=== PATIENT | female | born 1945 | race Caucasian/White ===

== ENCOUNTER 2019-07-19 02:20 | Inpatient (IN) ==
--- NOTE | 2019-07-19 02:39 | Emergency Department Note ---
Disposition Clinical Impression: Lumbar pain Thoracic back pain Qualifiers: Chronicity: acute Back pain laterality: midline Qualified Code(s): M54.6 - Pain in thoracic spine Disposition: Admitted As Inpatient Condition: Good Referrals: NONE,PCP [Non-Partnered Physician] - Forms: ED Satisfaction Letter, Work/School Release Time of Disposition: 07:00 Back Pain HPI - General Stated Complaint: Middle Back Pain Time Seen by Provider: 07/19/19 02:35 Nursing Notes Reviewed: Yes Vital Signs Reviewed: Yes - History of Present Illness Pt Subjective Complaint: back pain Duration: constant Similar Symptoms Previously: No Location: thoracic spine Quality: aching Radiation: none Worsens with: movement, supine Context: fall (mechanical fall two weeks ago) Associated symptoms: Denies: numbness, weakness, difficulty walking, incontinence of bowel/bladder, abdominal pain Treatments prior to arrival: prescription analgesics, other medications (muscle relaxers), other (ED visits, PCP visit) - Related Data Home Medications Medication Instructions Recorded Confirmed Aspirin [Lo-Dose Aspirin EC] 81 mg PO DAILY 11/20/16 07/19/19 Atenolol [Tenormin] 50 mg PO DAILY 11/20/16 07/19/19 Oxycodone HCl/Acetaminophen 1 each PO QID PRN 07/19/19 07/19/19 [Percocet 10-325 mg Tablet] Tizanidine HCl [Zanaflex] 4 mg PO TID PRN 07/19/19 07/19/19 Previous Rx's Medication Instructions Recorded HYDROcodone/Acet 5/325 mg [[place] 1 tab PO Q4H PRN 5 Days #20 tab 07/17/19 5-325 mg] Methocarbamol [Robaxin] 500 mg PO Q8HR 5 Days #15 tablet 07/17/19 Allergies Allergy/AdvReac Type Severity Reaction Status Date / Time codeine Allergy Unknown Unknown Verified 07/19/19 02:42 Horse/Equine Containing Allergy Unknown Unknown Verified 07/19/19 02:42 Products tetanus toxoid, adsorbed Allergy Unknown Unknown Verified 07/19/19 02:42 All systems ED: reviewed and negative except as stated. Review of Systems: As Per HPI Constitutional: Denies: fever, chills, weakness Eyes: Denies: vision change ENT ED: Denies: throat pain Cardiovascular: Denies: chest pain, palpitations Respiratory: Denies: cough, dyspnea Gastrointestinal: Denies: abdominal pain, nausea, vomiting Genitourinary: Denies: dysuria Musculoskeletal: Reports: as per HPI. Denies: joint swelling Integumentary: Denies: rash Neurological: Denies: headache, weakness, numbness, paresthesias Endocrine: Denies: fatigue Hematological/Lymphatic: Denies: lymphadenopathy Allergic/Immunologic: Denies: facial swelling Past Medical History - Past Medical History Medical history: Reports: hypertension Psychiatric history: Reports: no psych history - Social History Smoking Status: Never smoker Smokeless Tobacco Status: No Alcohol use: Reports: none Drug use: Reports: none Physical Exam - General Limitations: no limitations General appearance: alert, in no apparent distress - Head Head exam: atraumatic, normocephalic - Eye Eye exam: Present: EOMI - ENT ENT exam: normal oropharynx, mucous membranes moist - Neck Neck exam: Present: normal inspection, full ROM - Chest Chest inspection: Present: normal inspection. Absent: symmetric chest wall rise - Respiratory Respiratory exam: Present: normal lung sounds bilaterally. Absent: respiratory distress - Cardiovascular Cardiovascular exam: Present: regular rate, normal rhythm - Abdominal Exam Abdominal exam: Present: soft, Non-Tender - Extremities Exam Extremities exam: Present: normal inspection, full ROM, normal capillary refill - Back Exam Back exam: Present: tenderness (thoracic and lumbar). Absent: full ROM (limited due to pain), CVA tenderness (R), CVA tenderness (L) - Neurological Exam Neurological exam: Present: alert - Psychiatric Psychiatric exam: Present: normal affect, normal mood - Skin Skin exam: Present: warm, dry, intact, normal color. Absent: rash, cyanosis, diaphoresis Course Course Narrative: 73-year-old female presents with mid thoracic and lumbar pain. She describes a mechanical fall approximately 10 days ago. Tripping over some [employer], and falling directly onto her back. She did does mention her head got injured, but she denied any loss of consciousness or neck pain. She states that she had not been evaluated for this fall until the (yesterday). At that time she did unremarkable x-rays and had been treated with analgesics. Patient describes that she agreed to be discharged, although she mentions to me today her pain had not improved in the ED. Apparently patient did follow up with her primary care provider on Sunday. Patient describes additional analgesics earlier today and injections and patient has not had any improvement in her symptoms. Patient tells me her doctors attempting to have a MRI improved. In discussion with patient and her son who is bedside, it appears patient has not had any improvement in her pain after visit to the ED, multiple rounds medications, follow-up with her primary care provider. She has been given prescriptions for Vicodin, Percocet, tizanidine, and Robaxin. She denies any fever, cough, abdominal pain, neck pain, numbness, tingling, weakness, urinary incontinence, or passing out. No fever, no immunosuppressive drugs, no anti- platelet/anticoagulants, no IVDA, no bony point tenderness, no h/o CA, no saddle anesthesia, no bowel/bladder sx, not new onset. On examination she appears very uncomfortable, but is alert and oriented in no acute distress.. She is able to ambulate from the wheelchair to the exam bed. Head, no facial asymmetry, normocephalic, atraumatic. Heart regular rate. Lungs sounds clear. No pedal edema.Bilateral posterior tibial and dorsalis pedis pulses intact. No abdominal tenderness. Extremities and back exam limited due to patient's pain, but she has no CVA tenderness. Diffuse thoracic and lumbar tenderness as well as midline tenderness. Patient has not had any response to narcotic medications. We will order ketamine and plan for CT scan. - Reevaluation(s) Reevaluation #1: Pt had some improvement with ketamine. She had declined CT due to pain. We will attempt to manage her pain, and retry for CT again. Additionally have discussed with attending Dr. Lew who agreed to see patient. We will plan for CAT scan, and likely admission for intractable pain. Time: 04:01 Reevaluation #2: Patient was able to get a CAT scan. She has had some relief with IV ketamine. CAT scan , possible L3 endplate compression fracture, radiologist report ecommendations for MRI. We will page for hospitalist for admission for intractable pain, and MRI evaluation. Time: 06:43 Reevaluation #3: Pt discussed with and accepted by hospitalist Dr. Zuniga Time: 06:59 Vital Signs Temperature 98.2 F 07/19/19 02:32 Pulse Rate 60 07/19/19 02:32 Respiratory Rate 20 07/19/19 02:32 Blood Pressure 184/76 07/19/19 02:32 O2 Sat by Pulse Oximetry 98 07/19/19 02:32 Temperature 98.8 F 07/19/19 07:01 Pulse Rate 67 07/19/19 07:01 Respiratory Rate 20 07/19/19 07:01 Blood Pressure 135/67 07/19/19 07:01 O2 Sat by Pulse Oximetry 98 07/19/19 07:01 Oxygen Delivery Oxygen Delivery Room Air Back Pain/Injury - MDM Narrative Medical decision making narrative: Patient was admitted for intractable back pain, and possible compression fracture and L3 and shown on CT.. She has no history of chronic back pain. She had mechanical fall approximately 10 days ago. As an outpatient and one visit in the emergency department earlier in the week she had no relief with by mouth narcotics, IM pain medications, and muscle relaxers. Pain does appear to be associated with this mechanical fall. She has no chest pain, shortness of nikita ath, abdominal pain. No concerning signs for infectious cause. No cauda equina symptoms. Yesterday patient had no pain improvement after Dilaudid, muscle relaxers, by mouth narcotic medications. She had minimal relief of her pain with IM and po narcotics. Due to her age and vitals I did not feel comfortably aggressively treating her pain with multiple round of narcotics. For pain control today, patient was given doses of IV fentanyl, as well as ketamine. Patient was discussed with attending Dr. Lew had face time patient agreed with workup and disposition. Patient accepted by hospitalist. Lumbar Spine CT 07/19/19 02:43 IMPRESSION: Suspected minimally depressed L3 superior endplate compression fracture. This could be confirmed with MRI. Multilevel thoracolumbar degenerative change. D/ / Manohar Castillo / Manohar Castillo Interpreting Provider: Manohar Castillo Thoracic Spine CT 07/19/19 02:43 IMPRESSION: Suspected minimally depressed L3 superior endplate compression fracture. This could be confirmed with MRI. Multilevel thoracolumbar degenerative change. D/ / Manohar Castillo / Manohar Castillo Interpreting Provider: Manohar Castillo Laboratory Tests 07/19/19 07/19/19 05:14 05:14 WBC 7.5 RBC 4.19 Hgb 12.6 Hct 38.2 MCV 91.2 MCH 30.1 MCHC 33.0 RDW 13.7 Plt Count 160 MPV 10.3 Immature Gran % 0.5 Seg Neutrophils % 69.2 Lymphocytes % 17.2 Monocytes % 8.5 Eosinophils % 4.2 Basophils % 0.4 Neutrophils # 5.2 Lymphocytes # 1.3 Monocytes # 0.6 Eosinophils # 0.3 Basophils # 0.0 Sodium 137 Potassium 4.2 Chloride 103 Carbon Dioxide 25 BUN 13 Creatinine 0.79 Est GFR ( Amer) > 60 Est GFR (Non-Af Amer) > 60 BUN/Creatinine Ratio 16 Glucose 99 Calculated Osmolality 284 Calcium 9.[address] 07/19/19 02:43 IMPRESSION: Suspected minimally depressed L3 superior endplate compression fracture. This could be confirmed with MRI. Multilevel thoracolumbar degenerative change. D/ / Manohar Castillo / Manohar Castillo Interpreting Provider: Manohar Castillo Thoracic Spine CT 07/19/19 02:43 IMPRESSION: Suspected minimally depressed L3 superior endplate compression fracture. This could be confirmed with MRI. Multilevel thoracolumbar degenerative change. D/ / Manohar Castillo / Manohar Castillo Interpreting Provider: Manohar Castillo - Lab Data Lab results reviewed: Yes I reviewed the patient's lab results. Result diagrams: 07/19/19 05:14 07/19/19 05:14 Lab Results 07/19/19 07/19/19 Range/Units 05:14 05:14 WBC 7.5 (4.3-11.1) K/mcL RBC 4.19 (3.82-4.97) M/mcL Hgb 12.6 (11.5-15.4) g/dL Hct 38.2 (35.3-44.9) % MCV 91.2 (83.0-100.0) fL MCH 30.1 (28.0-33.3) pg MCHC 33.0 (31.6-35.5) g/dL RDW 13.7 (11.5-14.5) % Plt Count 160 (140-400) K/mcL MPV 10.3 (9.4-12.4) fL Immature Gran % 0.5 (0-4) % Seg Neutrophils % 69.2 % Lymphocytes % 17.2 % Monocytes % 8.5 % Eosinophils % 4.2 % Basophils % 0.4 % Neutrophils # 5.2 (1.6-8.9) K/mcL Lymphocytes # 1.3 (0.6-4.6) K/mcL Monocytes # 0.6 (0.0-1.3) K/mcL Eosinophils # 0.3 (0.0-0.6) K/mcL Basophils # 0.0 (0.0-0.2) K/mcL Sodium 137 (136-145) mEq/L Potassium 4.2 (3.5-5.1) mEq/L Chloride 103 (98-107) mEq/L Carbon Dioxide 25 (23-29) mEq/L BUN 13 (8-23) mg/dL Creatinine 0.79 (0.60-1.20) mg/dL Est GFR ( Amer) > 60 (> 60) Est GFR (Non-Af Amer) > 60 (> 60) BUN/Creatinine Ratio 16 (6-26) Glucose 99 (70-105) mg/dL Calculated Osmolality 284 (280-300) Calcium 9.3 (8.6-10.3) mg/dL - Radiology Data Radiology results reviewed: Yes I reviewed the patient's radiology results.
[2019-07-19] MEDS ORDERED: KETAMINE IVPB ONE ×2 (02:46→03:59)
[2019-07-19] MEDS ORDERED: SODIUM CHLORIDE 0.9% IVPB ONE ×2 (02:46→03:59)
[2019-07-19] MEDS ORDERED: *HR* FentaNYL (PF) 100 MCG/2 ML VIAL IVP ONE ×2 (03:58→06:46)
[2019-07-19 05:34] LABS: Basophils % 0.4 %; Eosinophils # 0.3 K/mcL (0.0-0.6); Eosinophils % 4.2 %; Hematocrit 38.2 % (35.3-44.9); Hemoglobin 12.6 g/dL (11.5-15.4); Immature Granulocytes % 0.5 % (0-4); Lymphocytes # 1.3 K/mcL (0.6-4.6); Lymphocytes % 17.2 %; Mean Corpuscular Hemoglobin 30.1 pg (28.0-33.3); Mean Corpuscular Volume 91.2 fL (83.0-100.0); Mean Platelet Volume 10.3 fL (9.4-12.4); Monocytes # 0.6 K/mcL (0.0-1.3); Monocytes % 8.5 %; Neutrophils # 5.2 K/mcL (1.6-8.9); Platelet Count 160 K/mcL (140-400); Red Blood Count 4.19 M/mcL (3.82-4.97); Red Cell Distribution Width 13.7 % (11.5-14.5); Segmented Neutrophils % 69.2 %; White Blood Count 7.5 K/mcL (4.3-11.1)
[2019-07-19 05:53] LABS: BUN/Creatinine Ratio 16 (6-26); Blood Urea Nitrogen 13 mg/dL (8-23); Calcium 9.3 mg/dL (8.6-10.3); Carbon Dioxide 25 mEq/L (23-29); Chloride 103 mEq/L (98-107); Glucose 99 mg/dL (70-105); Osmolality,Calculated 284 (280-300); Potassium 4.2 mEq/L (3.5-5.1); Sodium 137 mEq/L (136-145); eGFR For African Americans > 60 (> 60); eGFR For Non-African Americans > 60 (> 60)
--- NOTE | 2019-07-19 07:30 | Emergency Department Note ---
Disposition Clinical Impression: Lumbar pain Thoracic back pain Qualifiers: Chronicity: acute Back pain laterality: midline Qualified Code(s): M54.6 - Pain in thoracic spine Disposition: Admitted As Inpatient Condition: Good Referrals: NONE,PCP [Non-Partnered Physician] - Forms: ED Satisfaction Letter, Work/School Release Time of Disposition: 07:00 General Adult HPI - General Chief complaint: ED Back Pain/Injury Stated complaint: Middle Back Pain Time Seen by Provider: 07/19/19 02:35 Source: patient, EMS Limitations: no limitations Nursing Notes Reviewed: Yes Vital Signs Reviewed: Yes - History of Present Illness Pain Scale: 8 - Related Data Home Medications Medication Instructions Recorded Confirmed Aspirin [Lo-Dose Aspirin EC] 81 mg PO DAILY 11/20/16 07/19/19 Atenolol [Tenormin] 50 mg PO DAILY 11/20/16 07/19/19 Oxycodone HCl/Acetaminophen 1 each PO QID PRN 07/19/19 07/19/19 [Percocet 10-325 mg Tablet] Tizanidine HCl [Zanaflex] 4 mg PO TID PRN 07/19/19 07/19/19 Previous Rx's Medication Instructions Recorded HYDROcodone/Acet 5/325 mg [[place] 1 tab PO Q4H PRN 5 Days #20 tab 07/17/19 5-325 mg] Methocarbamol [Robaxin] 500 mg PO Q8HR 5 Days #15 tablet 07/17/19 Allergies Allergy/AdvReac Type Severity Reaction Status Date / Time codeine Allergy Unknown Unknown Verified 07/19/19 02:42 Horse/Equine Containing Allergy Unknown Unknown Verified 07/19/19 02:42 Products tetanus toxoid, adsorbed Allergy Unknown Unknown Verified 07/19/19 02:42 Constitutional: Denies: fever, chills, weakness Eyes: Denies: vision change ENT ED: Denies: throat pain Cardiovascular: Denies: chest pain, palpitations Respiratory: Denies: cough, dyspnea Gastrointestinal: Denies: abdominal pain, nausea, vomiting Genitourinary: Denies: dysuria Musculoskeletal: Reports: as per HPI. Denies: joint swelling Integumentary: Denies: rash Neurological: Denies: headache, weakness, numbness, paresthesias Endocrine: Denies: fatigue Hematological/Lymphatic: Denies: lymphadenopathy Allergic/Immunologic: Denies: facial swelling Past Medical History - Past Medical History Medical history: Reports: arthritis, hypertension Psychiatric history: Reports: no psych history - Social History Smoking Status: Never smoker Smokeless Tobacco Status: No Alcohol use: Reports: none Drug use: Reports: none Physical Exam - General Limitations: no limitations General appearance: alert, in no apparent distress Course Vital Signs Temperature 98.2 F 07/19/19 02:32 Pulse Rate 60 07/19/19 02:32 Respiratory Rate 20 07/19/19 02:32 Blood Pressure 184/76 07/19/19 02:32 O2 Sat by Pulse Oximetry 98 07/19/19 02:32 Temperature 98.8 F 07/19/19 07:01 Pulse Rate 67 07/19/19 07:01 Respiratory Rate 20 07/19/19 07:01 Blood Pressure 135/67 07/19/19 07:01 O2 Sat by Pulse Oximetry 98 07/19/19 07:01 Oxygen Delivery Oxygen Delivery Room Air Medical Decision Making - Lab Data Lab results reviewed: Yes I reviewed the patient's lab results. Result diagrams: 07/19/19 05:14 07/19/19 05:14 Lab Results 07/19/19 07/19/19 Range/Units 05:14 05:14 WBC 7.5 (4.3-11.1) K/mcL RBC 4.19 (3.82-4.97) M/mcL Hgb 12.6 (11.5-15.4) g/dL Hct 38.2 (35.3-44.9) % MCV 91.2 (83.0-100.0) fL MCH 30.1 (28.0-33.3) pg MCHC 33.0 (31.6-35.5) g/dL RDW 13.7 (11.5-14.5) % Plt Count 160 (140-400) K/mcL MPV 10.3 (9.4-12.4) fL Immature Gran % 0.5 (0-4) % Seg Neutrophils % 69.2 % Lymphocytes % 17.2 % Monocytes % 8.5 % Eosinophils % 4.2 % Basophils % 0.4 % Neutrophils # 5.2 (1.6-8.9) K/mcL Lymphocytes # 1.3 (0.6-4.6) K/mcL Monocytes # 0.6 (0.0-1.3) K/mcL Eosinophils # 0.3 (0.0-0.6) K/mcL Basophils # 0.0 (0.0-0.2) K/mcL Sodium 137 (136-145) mEq/L Potassium 4.2 (3.5-5.1) mEq/L Chloride 103 (98-107) mEq/L Carbon Dioxide 25 (23-29) mEq/L BUN 13 (8-23) mg/dL Creatinine 0.79 (0.60-1.20) mg/dL Est GFR ( Amer) > 60 (> 60) Est GFR (Non-Af Amer) > 60 (> 60) BUN/Creatinine Ratio 16 (6-26) Glucose 99 (70-105) mg/dL Calculated Osmolality 284 (280-300) Calcium 9.3 (8.6-10.3) mg/dL - Radiology Data Radiology results reviewed: Yes I reviewed the patient's radiology results. Lumbar Spine CT 07/19/19 02:43 IMPRESSION: Suspected minimally depressed L3 superior endplate compression fracture. This could be confirmed with MRI. Multilevel thoracolumbar degenerative change. D/ / Manohar Castillo / Manohar Castillo Interpreting Provider: Manohar Castillo Thoracic Spine CT 07/19/19 02:43 IMPRESSION: Suspected minimally depressed L3 superior endplate compression fracture. This could be confirmed with MRI. Multilevel thoracolumbar degenerative change. D/ / Manohar Castillo / Manohar Castillo Interpreting Provider: Manohar Castillo Attestation Statement - Attestation Attestation: I, Pedro Lew MD, personally evaluated this patient and discussed their management with the midlevel provicer, PAC/MANAGER [employer]ILIZATION. I reviewed the midlevel provider's note and agree with the documented findings, medical decision making, and plan of care. 73-year-old female presents to the emergency department with a complaint of back pain. Patient states that she had a fall about 12 days ago. She has had pain in her mid and lower back since. No radiation down the legs. No numbness tingling or weakness. No abdominal pain. She was seen here in the emergency department a few days ago. She followed up with her primary care provider yesterday. She returns tonight complaining of persistent pain and states the medications they have given her have not helped. She did have x-rays of her back a few days ago. On examination patient is a well-developed well-nourished well-appearing elderly female in no acute distress. She is alert and oriented 3. There is no cyanosis or diaphoresis. Breath sounds are clear and equal bilaterally. Heart regular rate and rhythm with a 3/6 systolic murmur. Abdomen is soft and nontender with normal bowel sounds. There is tenderness palpation from the mid thoracic down through the lumbar spine area. Labs reviewed and unremarkable. CT of the lumbar spine showed a possible L3 superior endplate compression fracture and MRI was recommended. CT of the thoracic spine showed multilevel degenerative changes. Due to the patient's intractable pain and abnormal CT findings the hospitalist, Dr. Zuniga, was consulted and accepted admission of the patient for further eval uation and management.
[2019-07-19] MEDS ORDERED: Ibuprofen 400 MG TABLET PO PRN (08:11)
[2019-07-19] MEDS ORDERED: Ondansetron 4 MG/2 ML VIAL IVP PRN (08:11)
[2019-07-19] MEDS ORDERED: Naloxone 0.4 MG/ML INJ IVP PRN (08:11)
--- NOTE | 2019-07-19 08:12 | Internal Med History&Physical ---
Date of Encounter: 07/19/19 Time of Encounter: 08:12 Internal Medicine - H&P: HPI Chief complaint: Back pain Admitted From: Emergency Dept History of present illness: Maranda Walters is a 73 F w hx HTN who p/w back pain. Pt had mechanical fall 1.5 weeks ago, tripped in garden, landed on back and head. Denies LOC or bruising. Persistent focal back pain since. Went to PCP last week and has been tried on multiple PO meds without relief so she came to ED earlier this week, again without much relief and so she returned. No fevers, no radiation to legs, no numbness/tingling, no incontinence or urine or stool. Says pain is severe enough sometimes she can't walk or get up. She states that she's been taken numerous narcotics in the last several days and nothing has really helped her feel more comfortable for very long. Otherwise she only takes atenolol daily for HTN and has no other significant medical comorbidities. In the ED, pt vitals unremarkable. Very uncomfortable and unable to tolerate CT. Given doses of fentanyl and ketamine and able to get CT which reads possible endplate compression fracture of L3 for which MRI could better delineate. Admitted for intractable back pain and for MRI. Past medical, surgical, social, and family histories reviewed and updated as below. Past Med Surg Social Fam HX - Past Medical History Medical history: arthritis, hypertension Psychiatric history: no psych history - Past Surgical History Additional surgical history: carpa tunnel bi-lat. knee replacement bi-lat. gastric bypass - Social History Smoking Status: Never smoker Smokeless Tobacco Status: No Alcohol use: none Drug use: none - Family History Father Living Status: Hx Family Cardiac Disorders: Yes Mother Hx Family Cancer: Yes (Uterine) Brother Hx Family Endocrine Disorder: Yes (Diabetes) Internal Medicine - H&P: Meds Aspirin [Lo-Dose Aspirin EC] 81 mg PO DAILY 11/20/16 [History] Atenolol [Tenormin] 50 mg PO DAILY 11/20/16 [History] HYDROcodone/Acet 5/325 mg [[place] 5-325 mg] 1 tab PO Q4H PRN 5 Days #20 tab 07/17/19 [Rx] Methocarbamol [Robaxin] 500 mg PO Q8HR 5 Days #15 tablet 07/17/19 [Rx] Oxycodone HCl/Acetaminophen [Percocet 10-325 mg Tablet] 1 each PO QID PRN 07/19/19 [History] Tizanidine HCl [Zanaflex] 4 mg PO TID PRN 07/19/19 [History] Allergy/AdvReac Type Severity Reaction Status Date / Time codeine Allergy Unknown Unknown Verified 07/19/19 02:42 Horse/Equine Containing Allergy Unknown Unknown Verified 07/19/19 02:42 Products tetanus toxoid, adsorbed Allergy Unknown Unknown Verified 07/19/19 02:42 All Systems PM: A 10-system review of systems was performed and is negative for pertinent findings except as documented above in the HPI. - Constitutional Vitals: Temp Pulse Resp BP Pulse Ox 98.8 F 67 20 135/67 98 07/19/19 07:01 07/19/19 07:01 07/19/19 07:55 07/19/19 07:55 07/19/19 07:01 Exam: General: good eye contact, very uncomfortable appearing, pleasant elderly female Head: Atraumatic, normocephalic. Face symmetric Eyes: EOMI, sclerae anicteric ENT: Mucous membranes moist. Normal oral mucosa. Trachea midline. Thoracic: No visible chest wall deformities. Normal breath sounds b/l, no wheezing or crackles Cardio: Normal S1 and S2, regular rate and rhythm, no murmurs Abdomen: Soft, nontender, nondistended. Bowel sounds present. No rebound Back: no point tenderness on spine, does have some b/l paraspinal muscle tenderness in lower T spine Extremities: Warm, well perfused. DP pulses 2+ b/l. No clubbing, cyanosis. No edema Skin: Intact. No rashes, bruises, or ulcers Neuro: Awake, fully oriented. Good memory, concentration, attention. Speech fluent. CN II-XII grossly intact. Strength 5/5 in b/l UE and LE. Distal sensation preserved to light touch. Internal Med - H&P Results - Labs CBC & Chem 7: 07/19/19 05:14 07/19/19 05:14 Labs: Short CBC 07/19/19 Range/Units 05:14 WBC 7.5 (4.3-11.1) K/mcL Hgb 12.6 (11.5-15.4) g/dL Hct 38.2 (35.3-44.9) % Plt Count 160 (140-400) K/mcL Neutrophils # 5.2 (1.6-8.9) K/mcL BMP 07/19/19 05:14 Sodium 137 Potassium 4.2 Chloride 103 Carbon Dioxide 25 BUN 13 Creatinine 0.79 Glucose 99 Calcium 9.3 - Impressions ITS Impressions Lumbar Spine CT 07/19/19 02:43 IMPRESSION: Suspected minimally depressed L3 superior endplate compression fracture. This could be confirmed with MRI. Multilevel thoracolumbar degenerative change. D/ : / 07/19/2019 08:06:30 Manohar Castillo / karen Interpreting Provider: Manohar Castillo Thoracic Spine CT 07/19/19 02:43 IMPRESSION: Suspected minimally depressed L3 superior endplate compression fracture. This could be confirmed with MRI. Multilevel thoracolumbar degenerative change. D/ /19/2019 08:06:30 Manohar jones Interpreting Provider: Manohar Castillo - Summary of Assessment and Plan Summary of Assessment and Plan: Maranda Walters is a 73 F w hx HTN who p/w back pain after a fall, CT showing possible L3 compression fx. Back pain: possible abnormality seen on CT - MRI L- and T-spine - tylenol, toradol 30 q6h prn, perc 10s q4h prn pain - fentanyl 50 iv q4h prn breakthrough - Spine Dr Fernandes consulted - PT/OT consults HTN: uncontrolled likely 2/2 pain, home atenolol Obesity: BMI 34 PPx: lovenox Tele: no Activity: up w assist FEN: regular, no MIVF Lines: PIV Consults: Code: Full Dispo: Obs for back pain, anticipate 1-2 days, will be homegoing
[2019-07-19] MEDS: Aspirin Enteric Coated 81 MG Tablet PO SCH ×2 (10:16→10:19)
[2019-07-19] MEDS: Ketorolac 30 MG/ML VIAL IM PRN ×2 (10:17→16:49)
[2019-07-19] MEDS: *HR* OxyCODONE/APAP 10/325 TABLET PO SCH ×3 (13:08→21:42)
[2019-07-20] MEDS: *HR* OxyCODONE/APAP 10/325 TABLET PO SCH ×6 (01:03→21:15)
[2019-07-20] MEDS: *HR* Enoxaparin 40 MG/0.4 ML SYRINGE SQ SCH (04:38)
--- NOTE | 2019-07-20 08:13 | Internal Med Progress Note ---
<DanaKelVinicio M - Last Filed: 07/20/19 10:07> Hospitalist Progress Note - Encounter Date of Encounter: 07/20/19 Time of Encounter: 08:13 - Subjective Interval History: Pt is a pleasant 73 F. Sitting in chair at bedside, awake, alert, appears comfortable. States that her pain is well controlled and tolerable at this time. Pain worse when lying supine so she prefers to sit. She is able to ambulate without assistance. We discussed plan today including evaluation by surgery. - Exam Vitals: Temp Pulse Resp BP Pulse Ox 98.1 F 65 16 120/77 96 07/20/19 07:54 07/20/19 07:54 07/20/19 07:54 07/20/19 07:54 07/20/19 07:54 Exam: General: appears comfortable, A&Ox3. Head: Atraumatic, normocephalic. Eyes: EOMI, conjunctiva normal. ENT: Mucous membranes moist. Thoracic: CTA bilaterally, no wheezing, rales, ronchi. Cardio: Normal S1 and S2, regular rate and rhythm, no murmurs Abdomen: Soft, nontender, nondistended. BS normoactive throughout. Back: Mild point tenderness at the lower t-spine with paraspinal tenderness. Pain increased with flexion and lying supine. Extremities: Warm, well perfused. DP pulses 2+ b/l. No clubbing, cyanosis. No edema Skin: Intact. No rashes, bruises, or ulcers Neuro: CN II-XII grossly intact. Sensation intact. - Assessment and Plan (1) Compression fx, thoracic spine Current Visit: Yes Status: Acute Assessment and Plan: Pt is a 73 F with acute thoracic and lumbar spine pain secondary to fall. Evaluation and MRI revealed two acute fractures with edema at T11 and T12. Questionable fracture at T10. Currently comfortable. Pain managed. Dr. Fernandes consulted. Appreciate assistance. - Ibuprofen, toradol Q6H PRN for pain. - Percocet 10/325 Q4H for pain. - Zofran for nausea. - Spine Dr Fernandes consulted - PT/OT evaluation. (2) HTN (hypertension) Current Visit: Yes Status: Acute Assessment and Plan: HTN uncontrolled at admission secondary to pain. BP now well controlled with home atenolol. 120/77. - Continue home atenolol. DVT Prophylaxis: SQ lovenox - Time Spent with Patient Total time spent is greater than 50% in coordination of care (as documented) at patient's floor/unit and/or counseling patient: Plan of Care Discussed with: patient Internal Medicine: Result - Labs CBC & Chem 7: 07/19/19 05:14 07/19/19 05:14 - Impressions Impressions Lumbar Spine CT 07/19/19 02:43 IMPRESSION: Suspected minimally depressed L3 superior endplate compression fracture. This could be confirmed with MRI. Multilevel thoracolumbar degenerative change. D/ : / 07/19/2019 08:06:30 Manohar Castillo / karen Interpreting Provider: Manohar Castillo Thoracic Spine CT 07/19/19 02:43 IMPRESSION: Suspected minimally depressed L3 superior endplate compression fracture. This could be confirmed with MRI. Multilevel thoracolumbar degenerative change. D/ /19/2019 08:06:30 Manohar jones Interpreting Provider: Manohar Castillo Lumbar Spine MRI 07/19/19 09:00 IMPRESSION: Extensive edema involving the T11 vertebral body without evidence of significant retropulsion of the spinal canal or significant height loss. Findings are most concerning for acute fracture. Edema involving the T12 superior endplate is also concerning for acute endplate fracture. No significant retropulsion of spinal canal. Tiny fracture involving the anterior inferior aspect of the T10 vertebral body. Possible disruption of anterior longitudinal ligament at T10-T11. No evidence of L3 superior endplate fracture, suspected on CT examination. Possible underlying ankylosing spondylitis within thoracic spine. Thoracic kyphosis. Small paravertebral hematoma adjacent to the T11 and T12 vertebral body. T2 hyperintense left renal lesion is most likely a cyst, although not completely characterized on this examination. Intrahepatic and extrahepatic biliary ductal dilatation is also not completely characterized on this examination. Dedicated abdominal imaging may be obtained non-emergently, as clinically warranted. Probable cardiomegaly. This is only seen on localization sequences. The findings were sent to the Radiology Results Communication Center at 4:26 pm on 07/19/2019to be communicated to a licensed caregiver. D/ 07/19/2019 16:36:07 Constantin Valencia MD / karen Interpreting Provider: Constantin Valencia MD Thoracic Spine MRI 07/19/19 09:00 IMPRESSION: Extensive edema involving the T11 vertebral body without evidence of significant retropulsion of the spinal canal or significant height loss. Findings are most concerning for acute fracture. Edema involving the T12 superior endplate is also concerning for acute endplate fracture. No significant retropulsion of spinal canal. Tiny fracture involving the anterior inferior aspect of the T10 vertebral body. Possible disruption of anterior longitudinal ligament at T10-T11. No evidence of L3 superior endplate fracture, suspected on CT examination. Possible underlying ankylosing spondylitis within thoracic spine. Thoracic kyphosis. Small paravertebral hematoma adjacent to the T11 and T12 vertebral body. T2 hyperintense left renal lesion is most likely a cyst, although not completely characterized on this examination. Intrahepatic and extrahepatic biliary ductal dilatation is also not completely characterized on this examination. Dedicated abdominal imaging may be obtained non-emergently, as clinically warranted. Probable cardiomegaly. This is only seen on localization sequences. The findings were sent to the Radiology Results Communication Center at 4:26 pm on 07/19/2019to be communicated to a licensed caregiver. D/ /19/2019 16:36:07 Constantin Valencia MD / karen Interpreting Provider: Constantin Valencia MD Hip/Pelvis X-Ray 07/19/19 21:01 IMPRESSION: No radiographic evidence of ankylosing spondylitis. Specifically, no ankylosis of the sacroiliac joints is identified. Bilateral hip arthrosis, mild on the right and [id number] on the left. D/ / Wolfgang Norris MD / Wolfgang Norris MD Interpreting Provider: Wolfgang Norris MD Consult Discharge Plan - Plan Referrals: Esperanza Paulson MD [Primary Care Provider] - <Dajuan Lozano - Last Filed: 07/20/19 16:35> Hospitalist Progress Note - Encounter Date of Encounter: 07/20/19 - Exam Vitals: Temp Pulse Resp BP Pulse Ox 97.9 F 50 16 110/68 96 07/20/19 11:47 07/20/19 11:47 07/20/19 11:47 07/20/19 11:47 07/20/19 11:47 - Assessment and Plan (1) Compression fx, thoracic spine Current Visit: Yes Status: Acute (2) HTN (hypertension) Current Visit: Yes Status: Chronic (3) Anemia Current Visit: No Status: Chronic (4) Aortic stenosis Current Visit: Yes Status: Chronic - Time Spent with Patient Total time spent is greater than 50% in coordination of care (as documented) at patient's floor/unit and/or counseling patient: Internal Medicine: Result - Labs CBC & Chem 7: 07/19/19 05:14 07/19/19 05:14 - Impressions Impressions Lumbar Spine CT 07/19/19 02:43 IMPRESSION: Suspected minimally depressed L3 superior endplate compression fracture. This could be confirmed with MRI. Multilevel thoracolumbar degenerative change. D/ /19/2019 08:06:30 Manohar jones Interpreting Provider: Manohar Castillo Thoracic Spine CT 07/19/19 02:43 IMPRESSION: Suspected minimally depressed L3 superior endplate compression fracture. This could be confirmed with MRI. Multilevel thoracolumbar degenerative change. D/ /19/2019 08:06:30 Manohar jones Interpreting Provider: Manohar Castillo Lumbar Spine MRI 07/19/19 09:00 IMPRESSION: Extensive edema involving the T11 vertebral body without evidence of significant retropulsion of the spinal canal or significant height loss. Findings are most concerning for acute fracture. Edema involving the T12 superior endplate is also concerning for acute endplate fracture. No significant retropulsion of spinal canal. Tiny fracture involving the anterior inferior aspect of the T10 vertebral body. Possible disruption of anterior longitudinal ligament at T10-T11. No evidence of L3 superior endplate fracture, suspected on CT examination. Possible underlying ankylosing spondylitis within thoracic spine. Thoracic kyphosis. Small paravertebral hematoma adjacent to the T11 and T12 vertebral body. T2 hyperintense left renal lesion is most likely a cyst, although not completely characterized on this examination. Intrahepatic and extrahepatic biliary ductal dilatation is also not completely characterized on this examination. Dedicated abdominal imaging may be obtained non-emergently, as clinically warranted. Probable cardiomegaly. This is only seen on localization sequences. The findings were sent to the Radiology Results Communication Center at 4:26 pm on 07/19/2019to be communicated to a licensed caregiver. D/ /19/2019 16:36:07 Constantin Valencia MD / karen Interpreting Provider: Constantin Valencia MD Thoracic Spine MRI 07/19/19 09:00 IMPRESSION: Extensive edema involving the T11 vertebral body without evidence of significant retropulsion of the spinal canal or significant height loss. Findings are most concerning for acute fracture. Edema involving the T12 superior endplate is also concerning for acute endplate fracture. No significant retropulsion of spinal canal. Tiny fracture involving the anterior inferior aspect of the T10 vertebral body. Possible disruption of anterior longitudinal ligament at T10-T11. No evidence of L3 superior endplate fracture, suspected on CT examination. Possible underlying ankylosing spondylitis within thoracic spine. Thoracic kyphosis. Small paravertebral hematoma adjacent to the T11 and T12 vertebral body. T2 hyperintense left renal lesion is most likely a cyst, although not completely characterized on this examination. Intrahepatic and extrahepatic biliary ductal dilatation is also not completely characterized on this examination. Dedicated abdominal imaging may be obtained non-emergently, as clinically warranted. Probable cardiomegaly. This is only seen on localization sequences. The findings were sent to the Radiology Results Communication Center at 4:26 pm on 07/19/2019to be communicated to a licensed caregiver. D/ /19/2019 16:36:07 Constantin Valencia MD / karen Interpreting Provider: Constantin Valencia MD Hip/Pelvis X-Ray 07/19/19 21:01 IMPRESSION: No radiographic evidence of ankylosing spondylitis. Specifically, no ankylosis of the sacroiliac joints is identified. Bilateral hip arthrosis, mild on the right and [id number] on the left. D/ / Wolfgang Norris MD / Wolfagng Norris MD Interpreting Provider: Wolfgang Norris MD - Attending Attestation I examined this patient and my medical decision-making was reviewed with the Resident Physician on 07/20/19. I agree with the documented findings, disposition and treatment plan as described except to the extent set forth below. Ms Walters is currently admitted for acute back pain due to thoracic end plate fractures. She remains moderate risk at this time. Ms Walters is up in chair. Pain is somewhat better with current regimen. Awaiting ortho eval. PT saw today. No fever or chills. No other issues. Exam: Alert. Comfortable up in chair. NC. Mucus membranes dry. Heart reg with murmur. Plan: Ortho eval. Pain control. <Vinicio Cortez - Last Filed: 07/20/19 10:07> (1) Compression fx, thoracic spine Qualifiers: Encounter type: subsequent encounter <Dajuan Lozano A - Last Filed: 07/20/19 16:35> (1) Compression fx, thoracic spine Qualifiers: Encounter type: subsequent encounter Thoracic vertebra fracture level: T10 Fracture healing: with routine healing Qualified Code(s): S22.070D - Wedge compression fracture of T9-T10 vertebra, subsequent encounter for fracture with routine healing (2) HTN (hypertension) Qualifiers: Hypertension type: essential hypertension Qualified Code(s): I10 - Essential (primary) hypertension (3) Anemia Qualifiers: Anemia type: other cause Other causes of anemia: chronic disease, other Qualified Code(s): D63.8 - Anemia in other chronic diseases classified elsewhere (4) Aortic stenosis Qualifiers: Cardiac valve disease etiology: etiology unspecified Qualified Code(s): I35.0 - Nonrheumatic aortic (valve) stenosis
[2019-07-20] MEDS: Ketorolac 30 MG/ML VIAL IM PRN (10:19)
--- NOTE | 2019-07-20 18:04 | Spine Progress Note ---
Date of Encounter: 07/20/19 Time of Encounter: 18:00 - Assessment and Plan (1) Osteopenia determined by x-ray Current Visit: Yes Status: Chronic On exam she is in mild distress secondary to thoracic lumbar back pain. Afebrile vital signs stable. She is neurovascularly intact with regard to bilateral lower extremities. Her hips move symmetrically. She has mild tenderness to palpation of the thoracolumbar region. MRI of the thoracic spine reveals an acute vertebral compression fracture at T11 as well as the superior endplate of T12. There is multilevel degenerative changes. Impression: 1) osteopenia 2) vertebral compression fractures T11 and T12. Plan: I had a long discussion with the patient regarding treatment options which include bracing and analgesics, analgesics alone, and kyphoplasty. The patient would like to proceed with kyphoplasty but does have some concerns secondary to her history of aortic valve/aortic stenosis history. Patient understands she must proceed with medical optimization and clearance prior to any surgical intervention. If she is cleared we will plan to do this minimally invasive procedure on July 22. Subjective Principal diagnosis: Vertebral compression fracture, osteopenia Interval history: Patient complains of severe thoracolumbar back pain after a fall. She rates the pain an 8 out a pain scale. It was 10 upon discharge but has improved mildly with analgesics. She says the pain is worsened with standing erect or putting any weight on her legs. She denies radicular symptoms. She denies bowel bladder symptomatology. She is admitted through the emergency department after workup revealed vertebral fractures. Objective Vital signs: Vital Signs Temp Pulse Resp BP Pulse Ox 07/20/19 17:32 98.3 F 50 16 180/72 97 07/20/19 11:47 97.9 F 50 16 110/68 96 07/20/19 07:54 98.1 F 65 16 120/77 96 07/20/19 03:56 98.3 F 53 20 134/74 96 07/19/19 22:47 98.5 F 54 20 102/55 94 07/19/19 18:42 98.5 F 51 20 128/57 96 Intake and Output 07/20/19 07/20/19 07/20/19 07:59 15:59 23:59 Intake Total 100 / 580 480 / 580 Balance 100 / 580 480 / 580 Intake: Oral 100 / 580 480 / 580 Other: Meal Lunch Percent of Meal Consumed 95% - Labs CBC & BMP: 07/19/19 05:14 07/19/19 05:14 Consult Discharge Plan - Plan Referrals: Esperanza Paulson MD [Primary Care Provider] -
[2019-07-21] MEDS: *HR* OxyCODONE/APAP 10/325 TABLET PO SCH ×6 (00:46→20:18)
[2019-07-21 01:20] LABS: Basophils % 0.4 %; Eosinophils # 0.5 K/mcL (0.0-0.6); Eosinophils % 8.2 %; Hematocrit 37.1 % (35.3-44.9); Hemoglobin 12.3 g/dL (11.5-15.4); Immature Granulocytes % 0.2 % (0-4); Lymphocytes # 1.1 K/mcL (0.6-4.6); Lymphocytes % 19.3 %; Mean Corpuscular HGB Conc 33.2 g/dL (31.6-35.5); Mean Corpuscular Hemoglobin 30.4 pg (28.0-33.3); Mean Corpuscular Volume 91.8 fL (83.0-100.0); Mean Platelet Volume 10.4 fL (9.4-12.4); Monocytes # 0.5 K/mcL (0.0-1.3); Monocytes % 9.8 %; Neutrophils # 3.4 K/mcL (1.6-8.9); Platelet Count 152 K/mcL (140-400); Red Blood Count 4.04 M/mcL (3.82-4.97); Red Cell Distribution Width 13.6 % (11.5-14.5); Segmented Neutrophils % 62.1 %; White Blood Count 5.5 K/mcL (4.3-11.1)
[2019-07-21 01:33] LABS: BUN/Creatinine Ratio 22 (6-26); Blood Urea Nitrogen 22 mg/dL (8-23); Calcium 9.1 mg/dL (8.6-10.3); Carbon Dioxide 27 mEq/L (23-29); Chloride 100 mEq/L (98-107); Glucose 89 mg/dL (70-105); Osmolality,Calculated 277 (280-300); Potassium 4.5 mEq/L (3.5-5.1); Sodium 132 mEq/L (136-145); eGFR For African Americans > 60 (> 60); eGFR For Non-African Americans 55 (> 60)
[2019-07-21] MEDS: *HR* Enoxaparin 40 MG/0.4 ML SYRINGE SQ SCH (05:39)
--- NOTE | 2019-07-21 08:00 | Internal Med Progress Note ---
<Vinicio Cortez - Last Filed: 07/21/19 11:32> Hospitalist Progress Note - Encounter Date of Encounter: 07/21/19 Time of Encounter: 08:00 - Exam Vitals: Temp Pulse Resp BP Pulse Ox 98.6 F 63 18 127/73 94 07/21/19 06:35 07/21/19 06:35 07/21/19 06:35 07/21/19 06:35 07/21/19 06:35 Exam: General: appears comfortable, A&Ox3. Head: Atraumatic, normocephalic. Eyes: EOMI, conjunctiva normal. ENT: Mucous membranes moist. Thoracic: CTA bilaterally, no wheezing, rales, ronchi. Cardio: Normal S1 and S2, regular rate and rhythm, 3+ crescendo-decresendo systolic murmur best heard at aortic area. Abdomen: Soft, nontender, nondistended. BS normoactive throughout. Back: Mild point tenderness at the lower t-spine with paraspinal tenderness. Pain increased with flexion and lying supine. Extremities: Warm, well perfused. DP pulses 2+ b/l. No clubbing, cyanosis. No edema Skin: Intact. No rashes, bruises, or ulcers Neuro: CN II-XII grossly intact. Sensation intact. - Assessment and Plan (1) Compression fx, thoracic spine Current Visit: Yes Status: Acute Assessment and Plan: Plan is for kyphoplasty today for acute traumatic thoracic spine fractures per spine surgery. Pt with mild-moderate aortic stenosis and moderate-severe thoracic kyphosis. Will need cardiology clearance for and pulm clearance for restrictive lung disease prior to surgery. - Cardiology agreed to see pt . Awaiting surgical clearance for . Appreciate assistance. - Pulm agreed to see pt, cleared for kyphoplasty per recs. - Repeat echo from 07/30/18 performed today for further evaluation of aortic area. - Ibuprofen Q6H PRN for pain. - Percocet 10/325 Q4H for pain. - Zofran for nausea. - PT/OT. (2) Aortic stenosis Current Visit: Yes Status: Chronic Assessment and Plan: Pt with history of aortic stenosis. Possible valve replacement following hospital course. Cardiology agreed to evaluate for kyphoplasty clearance. Awaiting recs. - Avoid hypotension. - Repeat echo this morning. Awaiting cardio evaluation. (3) HTN (hypertension) Current Visit: Yes Status: Chronic Assessment and Plan: HTN uncontrolled at admission secondary to pain. BP now well controlled with home atenolol. 127/73. - Continue home atenolol. DVT Prophylaxis: SQ lovenox - Time Spent with Patient Total time spent is greater than 50% in coordination of care (as documented) at patient's floor/unit and/or counseling patient: Plan of Care Discussed with: patient Internal Medicine: Result - Labs CBC & Chem 7: 07/21/19 00:55 07/21/19 00:55 Labs: Short CBC 07/21/19 Range/Units 00:55 WBC 5.5 (4.3-11.1) K/mcL Hgb 12.3 (11.5-15.4) g/dL Hct 37.1 (35.3-44.9) % Plt Count 152 (140-400) K/mcL Neutrophils # 3.4 (1.6-8.9) K/mcL BMP 07/21/19 00:55 Sodium 132 L Potassium 4.5 Chloride 100 Carbon Dioxide 27 BUN 22 Creatinine 0.99 Glucose 89 Calcium 9.1 Consult Discharge Plan - Plan Referrals: Espernaza Paulson MD [Primary Care Provider] - <Dajuan Lozano - Last Filed: 07/21/19 14:54> Hospitalist Progress Note - Encounter Date of Encounter: 07/21/19 - Exam Vitals: Temp Pulse Resp BP Pulse Ox 98.2 F 56 18 160/82 96 07/21/19 11:24 07/21/19 11:24 07/21/19 11:24 07/21/19 11:24 07/21/19 11:24 - Assessment and Plan (1) Compression fx, thoracic spine Current Visit: Yes Status: Acute (2) HTN (hypertension) Current Visit: Yes Status: Chronic (3) Anemia Current Visit: No Status: Chronic (4) Aortic stenosis Current Visit: Yes Status: Chronic - Time Spent with Patient Total time spent is greater than 50% in coordination of care (as documented) at patient's floor/unit and/or counseling patient: Internal Medicine: Result - Labs CBC & Chem 7: 07/21/19 00:55 07/21/19 00:55 Labs: Short CBC 07/21/19 Range/Units 00:55 WBC 5.5 (4.3-11.1) K/mcL Hgb 12.3 (11.5-15.4) g/dL Hct 37.1 (35.3-44.9) % Plt Count 152 (140-400) K/mcL Neutrophils # 3.4 (1.6-8.9) K/mcL BMP 07/21/19 00:55 Sodium 132 L Potassium 4.5 Chloride 100 Carbon Dioxide 27 BUN 22 Creatinine 0.99 Glucose 89 Calcium 9.1 - Impressions Impressions Echocardiogram 07/21/19 17:41 Impressions: LVEF 60-65%. Normal LV chamber size, wall thickness and function. Moderate left ventricular diastolic dysfunction. Normal right ventricular structure and function. Grossly calcified aortic valve leaflets. Moderate aortic stenosis. Mean gradient 34 mmHg. Peak velocity 3.51 m/s. Mild mitral regurgitation. Mild tricuspid regurgitation. Severe pulmonary hypertension. Estimated RVSP is >60 mmHg. Left Ventricular Wall Motion: Rest Echo Findings All wall segments showed normal motion. Findings: Study Quality * Technically sub-optimal due to poor echocardiographic windows. ECG Findings * Normal sinus rhythm. Left Ventricle * LVEF 60-65%. * Normal LV chamber size, wall thickness and function. * Moderate left ventricular diastolic dysfunction. Right Ventricle * Normal right ventricular structure and function. Left Atrium * Moderately dilated left atrium. Right Atrium * Mildly dilated right atrium. Interatrial Septum * Interatrial septum not well evaluated. Aortic Valve * Aortic valve not well visualized. * Grossly calcified aortic valve leaflets. * Mild aortic regurgitation. * Moderate aortic stenosis. Mean gradient 34 mmHg. Peak velocity 3.51 m/s. Mitral Valve * Mild mitral annular calcification. * Mildly thickened mitral valve leaflets. * Mild mitral regurgitation. * No mitral stenosis. Tricuspid Valve * Normal tricuspid valve structure. * Mild tricuspid regurgitation. * Severe pulmonary hypertension. * Estimated RVSP is >60 mmHg. Pulmonic Valve * Pulmonic valve not well visualized. * No pulmonic regurgitation. Aorta * The aortic root is mildly dilated. Pericardium * The pericardium appears normal. IVC * The IVC is not well evaluated. Pulmonary Artery * Pulmonary artery not well visualized. - Attending Attestation I examined this patient and my medical decision-making was reviewed with the Resident Physician on 07/21/19. I agree with the documented findings, disposition and treatment plan as described except to the extent set forth below. Ms Walters is currently admitted for acute thoracic compression fracture. She remains moderate to high risk due to potential for worsening clinical status. Ms Walters is up in chair. She continues to have pain mostly when moving. No fever or chills. No new neuro symptoms. Exam: Alert. Comfortable. NC. Mucus membranes dry. EOMI. Neck supple. Heart reg with murmur. Lungs no wheeze. Abd soft. No edema. Moves all extremities. No rash. Plan: Echo with moderate . Appreciate pulm and card eval and support. Pt OK for OR tomorrow. <Vinicio Cortez - Last Filed: 07/21/19 11:32> (1) Compression fx, thoracic spine Qualifiers: Encounter type: subsequent encounter Thoracic vertebra fracture level: T10 Fracture healing: with routine healing Qualified Code(s): S22.070D - Wedge compression fracture of T9-T10 vertebra, subsequent encounter for fracture with routine healing (2) Aortic stenosis Qualifiers: Cardiac valve disease etiology: etiology unspecified Qualified Code(s): I35.0 - Nonrheumatic aortic (valve) stenosis (3) HTN (hypertension) Qualifiers: Hypertension type: essential hypertension Qualified Code(s): I10 - Essential (primary) hypertension <Dajuan Lozano - Last Filed: 07/21/19 14:54> (1) Compression fx, thoracic spine Qualifiers: Encounter type: subsequent encounter Thoracic vertebra fracture level: T10 Fracture healing: with routine healing Qualified Code(s): S22.070D - Wedge compression fracture of T9-T10 vertebra, subsequent encounter for fracture with routine healing (2) HTN (hypertension) Qualifiers: Hypertension type: essential hypertension Qualified Code(s): I10 - Essential (primary) hypertension (3) Anemia Qualifiers: Anemia type: other cause Other causes of anemia: chronic disease, other Qualified Code(s): D63.8 - Anemia in other chronic diseases classified elsewhere (4) Aortic stenosis Qualifiers: Cardiac valve disease etiology: etiology unspecified Qualified Code(s): I35.0 - Nonrheumatic aortic (valve) stenosis
--- NOTE | 2019-07-21 08:50 | Pulmonology Consult Note ---
<Amado Tyson M - Last Filed: 07/21/19 09:15> Date of Encounter: 07/21/19 Medications and Allergies Aspirin [Lo-Dose Aspirin EC] 81 mg PO DAILY 11/20/16 [History] Atenolol [Tenormin] 50 mg PO DAILY 11/20/16 [History] HYDROcodone/Acet 5/325 mg [[place] 5-325 mg] 1 tab PO Q4H PRN 5 Days #20 tab 07/17/19 [Rx] Methocarbamol [Robaxin] 500 mg PO Q8HR 5 Days #15 tablet 07/17/19 [Rx] Biotin 1 mg PO DAILY 07/19/19 [History] Cranberry 400 mg PO DAILY 07/19/19 [History] Oxycodone HCl/Acetaminophen [Percocet 10-325 mg Tablet] 1 each PO QID PRN 07/19/19 [History] Sertraline [Zoloft] 150 mg PO DAILY 07/19/19 [History] Tizanidine HCl [Zanaflex] 4 mg PO TID PRN 07/19/19 [History] Allergy/AdvReac Type Severity Reaction Status Date / Time codeine Allergy Unknown Unknown Verified 07/19/19 02:42 Horse/Equine Containing Allergy Unknown Unknown Verified 07/19/19 02:42 Products tetanus toxoid, adsorbed Allergy Unknown Unknown Verified 07/19/19 02:42 All Systems: The remainder of the systems were reviewed and are negative Physical Examination Vital Signs: Vital Signs, Last 4 Hours Temp Pulse Resp BP Pulse Ox 07/21/19 07:00 94 07/21/19 06:35 98.6 F 63 18 127/73 94 Results - Laboratory Findings CBC and BMP: 07/21/19 00:55 07/21/19 00:55 Abnormal lab findings: Abnormal lab results Sodium 132 mEq/L (136-145) L 07/21/19 00:55 Est GFR (Non-Af Amer) 55 (> 60) L 07/21/19 00:55 Calculated Osmolality 277 (280-300) L 07/21/19 00:55 - Clinical Findings Intake & Output: Intake & Output 07/20/19 07/21/19 07/21/19 23:59 07:59 15:59 Intake Total 650 / 1230 400 / 450 50 / 450 Balance 650 / 1230 400 / 450 50 / 450 Consult Discharge Plan - Plan Referrals: Esperanza Paulson MD [Primary Care Provider] - - Attending Attestation I examined this patient and my medical decision-making was reviewed with the Resident Physician. I agree with the documented findings, disposition and treatment plan as described except to the extent set forth below. Patient seen and examined. Labs, radiology, chart personally reviewed. Agree with resident's history and physical, assessment, plan with following comments: SIGN INSTALLER: Patient follows commands, Pulmonary: Acceptable oxygenation and ventilation. Patient denies any history of obstructive or restrictive lung diseases. Patient does not use oxygen. Patient does not use any inhalers. She denies any symptoms related to her breathing. Patient is low risk from pulmonary standpoint and she is cleared to have surgery. Encouraged incentive spirometry especially postoperatively to lower risk of atelectasis and pneumonia. Patient denies any obstructive sleep apnea. Thank you for consultation and please call for any questions. <Oren Montes M - Last Filed: 07/21/19 11:25> Date of Encounter: 07/21/19 Time of Encounter: 10:00 Assessment and Plan (1) Encounter for pre-operative respiratory clearance Current Visit: Yes Status: Acute The patient is a 73 y/o female without any significant history from a respiratory standpoint who is preparing to undergo Kyphoplasty. Patient does not have any history of obstructive or restrictive lung diseases and does not use inhalers or oxygen at home. She denies any knowledge of Obstructive Sleep Apnea. States family has never reported snoring or bouts of apnea, feels rested upon waking. Patient does have a very remote history of smoking, less than half ppd for roughly 15 years, quit greater than 40 years ago. Denies any occupational exposures to lung irritants, occupation was housewife. Plan: -Patient is clear from a respiratory standpoint to undergo this minimally invasive surgical procedure. -Patient encourage to use incentive spirometry post-operatively to minimize atelectasis/pneumonia. History of Present Illness Consult date: 07/21/19 Reason for consult: other (Pulmonary Surgical Clearance) Chief complaint: Back Pain History of present illness: Ms Walters is a 73-year-old female with past medical history of hypertension, arthritis, aortic stenosis who is currently admitted for back pain s/p [facility] anical fall 1.5 weeks ago. Fall was result of tripping in the garden, denies LOC/syncope. Pain was so severe patient has had difficulty getting out of bed ever since. Unable to lay flat for CT 2/2 severe pain. Patient was given Fentanyl + Ketamine and ultimately tolerated the CT which did reveal evidence of T11-12 compression fractures. Patient would like to proceed with Kyphoplasty repair and Pulmonology was consulted for surgical clearance. Patient denies any history of lung disease. Does not follow with a full roll inspector and has never been diagnosed with any respiratory conditions. Denies COPD and Obstructive sleep apnea. Does not use inhalers and is not on oxygen at home. Patient was a former smoker greater than 40 years ago, and states she only really smoked socially in her teens and 20's, never more than a couple cigarettes per day. She denies any current symptoms related to breathing and is currently oxygenating and ventilating well on room air. Past Med Surg Social Fam HX - Past Medical History Medical history: arthritis, hypertension Psychiatric history: no psych history - Past Surgical History Additional surgical history: carpa tunnel bi-lat. knee replacement bi-lat. gastric bypass - Social History Smoking Status: Never smoker Smokeless Tobacco Status: No Alcohol use: none Drug use: none - Family History Father Living Status: Hx Family Cardiac Disorders: Yes Mother Hx Family Cancer: Yes (Uterine) Brother Hx Family Endocrine Disorder: Yes (Diabetes) All Systems: The remainder of the systems were reviewed and are negative Physical Examination Vital Signs: Vital Signs, Last 4 Hours Temp Pulse Resp BP Pulse Ox 07/21/19 07:00 94 07/21/19 06:35 98.6 F 63 18 127/73 94 Gen.: Alert and oriented. Vitals stable. No acute distress. Head: Atraumatic, normocephalic Eyes: Anicteric sclera, EOMI, moist conjunctiva ENT: Mucous murmurs moist, oropharynx clear Neck: Trachea midline, no lymphadenopathy or thyromegaly CV: Grade 3 aortic systolic murmur appreciated best over right second intercostal space, regular rate and rhythm. Respiratory: Lungs clear to auscultation bilaterally, no wheezes, rales, rhonchi. Nonlabored breathing. Abdomen: Mildly distended, soft, nontender and no organomegaly Extremities: No evidence of peripheral edema, cyanosis, clubbing, rash Results - Laboratory Findings CBC and BMP: 07/21/19 00:55 07/21/19 00:55 Abnormal lab findings: Abnormal lab results Sodium 132 mEq/L (136-145) L 07/21/19 00:55 Est GFR (Non-Af Amer) 55 (> 60) L 07/21/19 00:55 Calculated Osmolality 277 (280-300) L 07/21/19 00:55 - Clinical Findings Intake & Output: Intake & Output 07/20/19 07/21/19 07/21/19 23:59 07:59 15:59 Intake Total 650 / 1230 400 / 450 50 / 450 Balance 650 / 1230 400 / 450 50 / 450
--- NOTE | 2019-07-21 12:35 | Cardiology Consult Note ---
Date of Encounter: 07/21/19 Time of Encounter: 12:32 Assessment and Plan (1) Pre-operative cardiovascular examination Current Visit: Yes Status: Acute 73-year-old with chronic back pain scheduled for kyphoplasty. Reports she is able to ambulate without chest pain or discomfort. Echocardiogram demonstrates moderate aortic stenosis. Overall, she appears to be an acceptable risk candidate for kyphoplasty. No further preoperative cardiac testing appears to be necessary prior to the procedure. Patient is aware of risks of the procedure, including the risks of anesthesia, and wishes to proceed. (2) Aortic stenosis Current Visit: Yes Status: Chronic Asymptomatic moderate aortic valve stenosis. Continue to monitor. Recommend aspirin and beta autumn therapy. Consider statin as well. Outpatient cardiology follow-up for aortic valve surveillance recommended. Qualifiers: Cardiac valve disease etiology: etiology unspecified Qualified Code(s): I35.0 - Nonrheumatic aortic (valve) stenosis Discussion w patient/family: The assessment and plan as outlined above was discussed with the patient and/or family members who expressed understanding and agreement. All questions were answered. Thank you for involving us in the care of your patient. Please call with any questions. History of Present Illness Consult date: 07/21/19 Requesting physician: Vinicio Cortez Consult reason: Preop Chief complaint: Preop History of present illness: Ms. Walters is a 73 year old female who is being considered for kyphoplasty for compression fracture. Preoperative risk stratification requested. Functional capacity: Patient states she has limited due to chronic back pain, but able to ambulate without chest pain or discomfort. Past cardiac history: Patient states she had an ablation several years ago. She has never required a cardiac catheterization. Patient has never had a myocardial infarction. She does have a known history of aortic stenosis. TTE 07/21/2019: EF 60-65%. Normal LV, RV size and function. Moderate diastolic dysfunction. Aortic valve not well visualized, but grossly appears to be calcified. Moderate aortic stenosis by Doppler. Mean gradient 34 mmHg, peak velocity 3.51 m/s. Mild mitral and tricuspid regurgitation. Severe pulmonary hypertension, estimated RVSP is greater than 60 mmHg. Past Med Surg Social Fam HX - Past Medical History Medical history: arthritis, hypertension Psychiatric history: no psych history - Past Surgical History Additional surgical history: carpa tunnel bi-lat. knee replacement bi-lat. gastric bypass - Social History Smoking Status: Never smoker Smokeless Tobacco Status: No Alcohol use: none Drug use: none - Family History Father Living Status: Hx Family Cardiac Disorders: Yes Mother Hx Family Cancer: Yes (Uterine) Brother Hx Family Endocrine Disorder: Yes (Diabetes) Medications and Allergies Aspirin [Lo-Dose Aspirin EC] 81 mg PO DAILY 11/20/16 [History] Atenolol [Tenormin] 50 mg PO DAILY 11/20/16 [History] HYDROcodone/Acet 5/325 mg [[place] 5-325 mg] 1 tab PO Q4H PRN 5 Days #20 tab 07/17/19 [Rx] Methocarbamol [Robaxin] 500 mg PO Q8HR 5 Days #15 tablet 07/17/19 [Rx] Biotin 1 mg PO DAILY 07/19/19 [History] Cranberry 400 mg PO DAILY 07/19/19 [History] Oxycodone HCl/Acetaminophen [Percocet 10-325 mg Tablet] 1 each PO QID PRN 07/19/19 [History] Sertraline [Zoloft] 150 mg PO DAILY 07/19/19 [History] Tizanidine HCl [Zanaflex] 4 mg PO TID PRN 07/19/19 [History] Allergy/AdvReac Type Severity Reaction Status Date / Time codeine Allergy Unknown Unknown Verified 07/19/19 02:42 Horse/Equine Containing Allergy Unknown Unknown Verified 07/19/19 02:42 Products tetanus toxoid, adsorbed Allergy Unknown Unknown Verified 07/19/19 02:42 All Systems Review: The remainder of the systems were reviewed and are negative - Cardiovascular Cardiovascular: as per HPI - Musculoskeletal Musculoskeletal: arthralgias, back pain Physical Examination Vital Signs, Last 4 Hours Temp Pulse Resp BP Pulse Ox 07/21/19 11:24 98.2 F 56 18 160/82 96 General: Conversant HEENT: Atraumatic, Normocephaly, Mucus Membranes Moist Neck: No JVD, Normal carotid pulses Cardiac: Reg Rate and Rhythm, Normal S1 and S2, Other (Grade 2 systolic ejection murmur loudest at the upper right sternal border) Lungs: Normal Breath Sounds, No Wheeze, Rales, Rhonchi Neuro: Alert and responsive, No focal deficits noted Abdomen: Soft, Non-Tender Skin: No rashes noted on visualized skin Musculoskeletal: No Chest Wall Tenderness Extremities: No Clubbing, No Cyanosis, No Edema Results 07/21/19 00:55 07/21/19 00:55 Lab Results 07/21/19 07/21/19 00:55 00:55 WBC 5.5 Hgb 12.3 Hct 37.1 Plt Count 152 Sodium 132 L Potassium 4.5 Chloride 100 Carbon Dioxide 27 BUN 22 Creatinine 0.99 Glucose 89 Calcium 9.1 - Imaging and Cardiology Echo: report reviewed - EKG Interpretation EKG results cardiology: personally reviewed Consult Discharge Plan - Plan Referrals: Esperanza Paulson MD [Primary Care Provider] -
[2019-07-22] MEDS: *HR* OxyCODONE/APAP 10/325 TABLET PO SCH ×5 (00:05→16:48)
[2019-07-22] MEDS: *HR* Enoxaparin 40 MG/0.4 ML SYRINGE SQ SCH (05:43)
[2019-07-22 06:08] LABS: Basophils % 0.3 %; Eosinophils # 0.4 K/mcL (0.0-0.6); Eosinophils % 5.9 %; Hematocrit 38.1 % (35.3-44.9); Hemoglobin 12.5 g/dL (11.5-15.4); Immature Granulocytes % 0.5 % (0-4); Lymphocytes # 1.4 K/mcL (0.6-4.6); Lymphocytes % 23.6 %; Mean Corpuscular HGB Conc 32.8 g/dL (31.6-35.5); Mean Corpuscular Hemoglobin 29.8 pg (28.0-33.3); Mean Corpuscular Volume 90.7 fL (83.0-100.0); Mean Platelet Volume 10.2 fL (9.4-12.4); Monocytes # 0.6 K/mcL (0.0-1.3); Monocytes % 9.5 %; Neutrophils # 3.5 K/mcL (1.6-8.9); Platelet Count 166 K/mcL (140-400); Red Cell Distribution Width 13.9 % (11.5-14.5); Segmented Neutrophils % 60.2 %; White Blood Count 5.9 K/mcL (4.3-11.1)
[2019-07-22 06:33] LABS: BUN/Creatinine Ratio 20 (6-26); Blood Urea Nitrogen 15 mg/dL (8-23); Calcium 9.2 mg/dL (8.6-10.3); Carbon Dioxide 26 mEq/L (23-29); Chloride 101 mEq/L (98-107); Glucose 96 mg/dL (70-105); Osmolality,Calculated 285 (280-300); Potassium 4.1 mEq/L (3.5-5.1); Sodium 137 mEq/L (136-145); eGFR For African Americans > 60 (> 60); eGFR For Non-African Americans > 60 (> 60)
--- NOTE | 2019-07-22 09:12 | Internal Med Progress Note ---
<Vinicio Cortez - Last Filed: 07/22/19 09:09> Hospitalist Progress Note - Encounter Date of Encounter: 07/22/19 Time of Encounter: 09:09 - Subjective Interval History: Patient is awake, sitting in chair comfortably. States her pain is tolerable, unchanged from last evaluation. Pain still worse with ambulation. Denies fever, chills, sob, cp, ap. NPO at this time, awaiting kyphoplasty procedure today. - Exam Vitals: Temp Pulse Resp BP Pulse Ox 98.5 F 51 16 140/77 97 07/22/19 07:47 07/22/19 07:47 07/22/19 07:47 07/22/19 07:47 07/22/19 07:47 Exam: General: comfortable, A&Ox3. Head: Atraumatic, normocephalic. Eyes: EOMI, conjunctiva normal. ENT: Mucous membranes moist. Thoracic: CTA bilaterally, no wheezing, rales, ronchi. Cardio: Normal S1 and S2, regular rate and rhythm, 3+ crescendo-decresendo systolic murmur best heard at aortic area. Abdomen: Soft, nontender, nondistended. BS normoactive throughout. Back: Pain worse with lumbar flexion, laying supine, ambulation. Extremities: Warm, no clubbing, cyanosis. Varicosities throughout. Skin: Intact. No rashes, bruises, or ulcers Neuro: CN II-XII grossly intact. Sensation intact. - Assessment and Plan (1) Compression fx, thoracic spine Current Visit: Yes Status: Acute Assessment and Plan: Plan is for kyphoplasty today for acute traumatic thoracic spine fractures per spine surgery. Pt with mild-moderate aortic stenosis and moderate-severe thoracic kyphosis. Pt cleared by cards and pulm for kyphoplasty procedure today. - Repeat echo demonstrated moderate per cards. - Ibuprofen Q6H PRN for pain. - Percocet 10/325 Q4H for pain. - Zofran for nausea. - PT/OT. (2) Aortic stenosis Current Visit: Yes Status: Chronic Assessment and Plan: Pt with asymptomatic moderate aortic valve stenosis. Cleared for kyphoplasty per cards. - Continue to monitor, avoid hypotension. - ASA and beta autumn therapy per cards. - OP f/u with cardiology. (3) HTN (hypertension) Current Visit: Yes Status: Chronic Assessment and Plan: HTN uncontrolled at admission secondary to pain. BP stable with home atenolol. 140/77 at last check. - Continue home atenolol. - ASA, statin recommended per cards. DVT Prophylaxis: SQ lovenox - Time Spent with Patient Total time spent is greater than 50% in coordination of care (as documented) at patient's floor/unit and/or counseling patient: Plan of Care Discussed with: patient Internal Medicine: Result - Labs CBC & Chem 7: 07/22/19 05:20 07/22/19 05:20 Labs: Short CBC 07/22/19 Range/Units 05:20 WBC 5.9 (4.3-11.1) K/mcL Hgb 12.5 (11.5-15.4) g/dL Hct 38.1 (35.3-44.9) % Plt Count 166 (140-400) K/mcL Neutrophils # 3.5 (1.6-8.9) K/mcL BMP 07/22/19 05:20 Sodium 137 Potassium 4.1 Chloride 101 Carbon Dioxide 26 BUN 15 Creatinine 0.76 Glucose 96 Calcium 9.2 - Impressions Impressions Echocardiogram 07/21/19 17:41 Impressions: LVEF 60-65%. Normal LV chamber size, wall thickness and function. Moderate left ventricular diastolic dysfunction. Normal right ventricular structure and function. Grossly calcified aortic valve leaflets. Moderate aortic stenosis. Mean gradient 34 mmHg. Peak velocity 3.51 m/s. Mild mitral regurgitation. Mild tricuspid regurgitation. Severe pulmonary hypertension. Estimated RVSP is >60 mmHg. Left Ventricular Wall Motion: Rest Echo Findings All wall segments showed normal motion. Findings: Study Quality * Technically sub-optimal due to poor echocardiographic windows. ECG Findings * Normal sinus rhythm. Left Ventricle * LVEF 60-65%. * Normal LV chamber size, wall thickness and function. * Moderate left ventricular diastolic dysfunction. Right Ventricle * Normal right ventricular structure and function. Left Atrium * Moderately dilated left atrium. Right Atrium * Mildly dilated right atrium. Interatrial Septum * Interatrial septum not well evaluated. Aortic Valve * Aortic valve not well visualized. * Grossly calcified aortic valve leaflets. * Mild aortic regurgitation. * Moderate aortic stenosis. Mean gradient 34 mmHg. Peak velocity 3.51 m/s. Mitral Valve * Mild mitral annular calcification. * Mildly thickened mitral valve leaflets. * Mild mitral regurgitation. * No mitral stenosis. Tricuspid Valve * Normal tricuspid valve structure. * Mild tricuspid regurgitation. * Severe pulmonary hypertension. * Estimated RVSP is >60 mmHg. Pulmonic Valve * Pulmonic valve not well visualized. * No pulmonic regurgitation. Aorta * The aortic root is mildly dilated. Pericardium * The pericardium appears normal. IVC * The IVC is not well evaluated. Pulmonary Artery * Pulmonary artery not well visualized. Consult Discharge Plan - Plan Referrals: Esperanza Paulson MD [Primary Care Provider] - <Dajuan Lozano - Last Filed: 07/22/19 17:19> Hospitalist Progress Note - Encounter Date of Encounter: 07/22/19 - Exam Vitals: Temp Pulse Resp BP Pulse Ox 98.7 F 52 16 104/67 95 07/22/19 15:49 07/22/19 15:49 07/22/19 15:49 07/22/19 15:49 07/22/19 15:49 - Assessment and Plan (1) Compression fx, thoracic spine Current Visit: Yes Status: Acute (2) HTN (hypertension) Current Visit: Yes Status: Chronic (3) Anemia Current Visit: No Status: Chronic (4) Aortic stenosis Current Visit: Yes Status: Chronic - Time Spent with Patient Total time spent is greater than 50% in coordination of care (as documented) at patient's floor/unit and/or counseling patient: Internal Medicine: Result - Labs CBC & Chem 7: 07/22/19 05:20 07/22/19 05:20 Labs: Short CBC 07/22/19 Range/Units 05:20 WBC 5.9 (4.3-11.1) K/mcL Hgb 12.5 (11.5-15.4) g/dL Hct 38.1 (35.3-44.9) % Plt Count 166 (140-400) K/mcL Neutrophils # 3.5 (1.6-8.9) K/mcL BMP 07/22/19 05:20 Sodium 137 Potassium 4.1 Chloride 101 Carbon Dioxide 26 BUN 15 Creatinine 0.76 Glucose 96 Calcium 9.2 - Attending Attestation I examined this patient and my medical decision-making was reviewed with the Resident Physician on 07/22/19. I agree with the documented findings, disposition and treatment plan as described except to the extent set forth below. Ms Walters is currently hospitalized for compression fracture. She remains moderate to high risk due to potential for worsening clinical status. Ms Walters is doing OK. She is awaiting surgical procedure. No fever or chills. No CP. Feels better up in chair. Exam Alert Comfortable Mucus membranes dry Heart reg with murmur No wheeze Plan Kyphoplasty today Probable d/c tomorrow. <Vinicio Cortez - Last Filed: 07/22/19 09:09> (1) Compression fx, thoracic spine Qualifiers: Encounter type: subsequent encounter Thoracic vertebra fracture level: T10 F racture healing: with routine healing Qualified Code(s): S22.070D - Wedge compression fracture of T9-T10 vertebra, subsequent encounter for fracture with routine healing (2) Aortic stenosis Qualifiers: Cardiac valve disease etiology: etiology unspecified Qualified Code(s): I35.0 - Nonrheumatic aortic (valve) stenosis (3) HTN (hypertension) Qualifiers: Hypertension type: essential hypertension Qualified Code(s): I10 - Essential (primary) hypertension <Dajuan Lozano A - Last Filed: 07/22/19 17:19> (1) Compression fx, thoracic spine Qualifiers: Encounter type: subsequent encounter Thoracic vertebra fracture level: T10 Fracture healing: with routine healing Qualified Code(s): S22.070D - Wedge compression fracture of T9-T10 vertebra, subsequent encounter for fracture with routine healing (2) HTN (hypertension) Qualifiers: Hypertension type: essential hypertension Qualified Code(s): I10 - Essential (primary) hypertension (3) Anemia Qualifiers: Anemia type: other cause Other causes of anemia: chronic disease, other Qualified Code(s): D63.8 - Anemia in other chronic diseases classified elsewhere (4) Aortic stenosis Qualifiers: Cardiac valve disease etiology: etiology unspecified Qualified Code(s): I35.0 - Nonrheumatic aortic (valve) stenosis
[2019-07-22] MEDS ORDERED: *HR* FentaNYL (PF) 100 MCG/2 ML VIAL ONE ×2 (17:28→18:59)
[2019-07-22] MEDS ORDERED: Heparin 1,000 UNITS/500 mL 500 ML ONE (17:28)
--- NOTE | 2019-07-22 17:29 | Anesthesia Evaluation PreOp ---
Date of Encounter: 07/22/19 Time of Encounter: 17:26 - Past History Planned Operation: Kyphoplasty T12-L1 Cardiac History: HTN, Arrhythmia (H/O PAT S/P ablation), Other (moderate aortic stenosis(Mean gradient 34 mmHg. 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 Significant HX Other Medical History: Denies Any Significant HX Anesthesia History: No Prior Anesthetic Complications, Past Anesthesia (hysterectomy) Alcohol Use: none Drug use: none Medications and Allergies Aspirin [Lo-Dose Aspirin EC] 81 mg PO DAILY 11/20/16 [History] Atenolol [Tenormin] 50 mg PO DAILY 11/20/16 [History] HYDROcodone/Acet 5/325 mg [[place] 5-325 mg] 1 tab PO Q4H PRN 5 Days #20 tab 07/17/19 [Rx] Methocarbamol [Robaxin] 500 mg PO Q8HR 5 Days #15 tablet 07/17/19 [Rx] Biotin 1 mg PO DAILY 07/19/19 [History] Cranberry 400 mg PO DAILY 07/19/19 [History] Oxycodone HCl/Acetaminophen [Percocet 10-325 mg Tablet] 1 each PO QID PRN 07/19/19 [History] Sertraline [Zoloft] 150 mg PO DAILY 07/19/19 [History] Tizanidine HCl [Zanaflex] 4 mg PO TID PRN 07/19/19 [History] Allergy/AdvReac Type Severity Reaction Status Date / Time codeine Allergy Unknown Unknown Verified 07/19/19 02:42 Horse/Equine Containing Allergy Unknown Unknown Verified 07/19/19 02:42 Products tetanus toxoid, adsorbed Allergy Unknown Unknown Verified 07/19/19 02:42 - Meds/Allergy Pre-op Review Medications Reviewed: Yes Allergies Reviewed: Yes Beta Blockers on Current Med List: Yes If Beta Blockers taken, Date/Time (Last Dose taken): 07/22/2019 at 0841 Anesthesia Results - Labs 07/22/19 05:20 07/22/19 05:20 - Imaging EKG: report reviewed (07/22/2019 sinus rhythm with occasional supraventricular premature complexes) Additional studies: 07/21/2019 Echo Impressions: LVEF 60-65%. Normal LV chamber size, wall thickness and function. Moderate left ventricular diastolic dysfunction. Normal right ventricular structure and function. Grossly calcified aortic valve leaflets. Moderate aortic stenosis. Mean gradient 34 mmHg. Peak velocity 3.51 m/s. Mild mitral regurgitation. Mild tricuspid regurgitation. Severe pulmonary hypertension. Estimated RVSP is >60 mmHg. Aortic Valve Peak Erich: 3.51 m/sec Mean Erich: 2.81 m/sec Peak Grad: 49.00 mmHg Mean Grad: 34.00 mmHg Valve Area: .92 cm2 Anesthesia Exam Vital Signs/O2 Sat, Most Current Temp Pulse Resp BP Pulse Ox 98.7 F 52 16 104/67 95 07/22/19 15:49 07/22/19 15:49 07/22/19 15:49 07/22/19 15:49 07/22/19 15:49 Height: 5'3''/1.6m Weight: 195 lbs/88.6 kg NPO (# of Hours): 8 Pain Scale: 0 Pain Scale Used: Numeric (1 - 10) - HEENT Pupil (Motor): EOMI Mallampati: II Teeth: Edentulous Denture Type: Upper: Complete, Lower: Complete Oral Opening: Greater than 3 - OUTSIDE SALES PROFESSIONAL LOC: Oriented OUTSIDE SALES PROFESSIONAL Motor: Normal RUE, Normal LUE, Normal RLE, Normal LLE, Normal Face [employer] SALES PROFESSIONAL Sensory: Normal: RUE, LUE, RLE, LLE, Face - Cardiac Rhythm: Regular Murmur: Systolic - Pulmonary Breath Sounds: bilateral Clear Respiratory Effort: Symmetrical Anesthesia Assess/Plan ASA Score: 4 Level of consciousness: Cooperative, Oriented, Tranquil Anesthetic Plan: General Monitoring Plan: Standard Monitors, A-Line Recovery Plan: PACU
--- NOTE | 2019-07-22 17:53 | Anesthesia Procedures ---
Date of Encounter: 07/22/19 Time of Encounter: 17:51 Procedures: Anesthesia - Arterial Line Consent obtained: written consent Time out performed: Yes Sedation: Fentanyl (mcg): 50 Supplemental Oxygen via Nasal Cannula (L/min): 2 Local Anesthetic: Lidocaine 1% Amount of Anesthetic used (mls): 1 Size (Gauge): 20 Length (inches): 1 3/4 Technique Used: sterile prep, guide wire technique, direct puncture technique, other (ultrasound guided) Post-Procedure: line taped into place, dry sterile dressing placed Patient tolerated procedure: well, no complications Complications: none Site: Radial L Vitals: 55, 108/70, 97%, 16
[2019-07-22] MEDS ORDERED: *HR* Vasopressin 20 UNIT/ML VIAL ONE (17:55)
[2019-07-22] MEDS ORDERED: Isovue-300 50 ML VIAL ONE (18:30)
[2019-07-22] MEDS ORDERED: *HR* Midazolam HCl 2 MG/2 ML VIAL ONE (18:59)
[2019-07-22] MEDS ORDERED: *HR* Propofol 200 MG/20 ML VIAL IVP ONE (18:59)
[2019-07-22] MEDS ORDERED: Lidocaine -MPF 2% 2 ML VIAL ONE (18:59)
[2019-07-22] MEDS ORDERED: Dexamethasone 4 MG/ML VIAL ONE (18:59)
[2019-07-22] MEDS ORDERED: Ondansetron 4 MG/2 ML VIAL ONE (18:59)
[2019-07-22] MEDS ORDERED: *HR* PHENYLEPHRINE 1,000 MCG/10 ML SYRINGE IVP ONE (18:59)
[2019-07-22] MEDS ORDERED: *HR* Etomidate 40 MG/20 ML VIAL IVP ONE (18:59)
--- NOTE | 2019-07-22 19:49 | Orthopedic Operative Note ---
Date of procedure: 07/22/19 Pre-op diagnosis: Osteopenia, vertebral compression fracture Post-op diagnosis: same Operation/Findings: Kyphoplasty T11, T12: The patient was brought to the operative theater where successful endotracheal anesthesia was performed. The patient was given antibiotics prior to the start of the procedure. Compression boots and stockings were used for deep vein thrombosis. Patient was then turned prone on a well-padded Jh table. The back was prepped and draped in the usual sterile fashion. 2 C-arm fluorographic devices were brought into position such that simultaneous AP and lateral views centered over the involved T11 and T12 vertebral bodyies could be performed. A stab incision was made over the superior-lateral aspect of the left T11 pedicle. We introduced a Jamshidi needle into the T11 vertebral body via a transpedicular route. We took biplanar images of the vertebral body using fluorography. The needle was found to be in appropriate position and within the confines of the T11 vertebral body. We then introduced a biopsy trocar and obtained a biopsy specimen of the T11 vertebral body. This was sent for pathologic evaluation. We then removed the biopsy trocar and introduced a Kyphon balloon. The balloon was insufflated to approximately 4 mL volume and subsequently deflated. The balloon was seen to expand within the confines of the vertebral body on biplanar fluorographic views. The balloon was then removed. We moved distally to the T12 level and again cannulated the T12 vertebral body via a transpedicular route. We insufflated the balloon inside the confines of the T12 vertebral body and subseq uently deflated it in a similar manner as was done at the T11 level. We then inserted cement trochars at T11 and T12 and sequentially placed bone cement within the confines of the T11 and T12 vertebral bodies. We took intermittent fluorographic views which confirmed satisfactory placement of the cement. After completion of the cementation process, the trocar was removed. We took final AP and lateral fluorographic views. We then closed the stab incisions with 2-0 nylon suture. A Band-Aid was placed over the wounds. The patient was turned supine on a hospital bed and extubated. All sponge instrument and needle counts were correct at the end of the procedure. The patient tolerated the procedure well without complications. Anesthesia: GETA Surgeon: Isaac E Fernandes Jr Was there an dental chairside assistant present: No Estimated blood loss (cc): 3 Specimen: T11 vertebral biopsy Condition: stable Disposition: PACU
[2019-07-22] MEDS: *HR* HYDROmorphone (PF) 1 MG/ML SYRINGE IVP PRN ×4 (20:26→20:58)
[2019-07-22] MEDS ORDERED: *HR* HYDROcodone/Acet 5/325 mg TABLET PO PRN (21:37)
[2019-07-22] MEDS ORDERED: Ondansetron 4 MG/2 ML VIAL IVP PRN (21:37)
[2019-07-22] MEDS ORDERED: Naloxone 0.4 MG/ML INJ IVP PRN (21:37)
[2019-07-22] MEDS: Methocarbamol 500 MG TABLET PO SCH (23:27)
[2019-07-23] MEDS: *HR* OxyCODONE Immed Rel 5 MG TABLET PO PRN ×3 (01:04→19:44)
[2019-07-23] MEDS: Methocarbamol 500 MG TABLET PO SCH ×2 (07:54→15:35)
[2019-07-23] MEDS ORDERED: (Biotin 1 MG) PO SCH (09:00)
[2019-07-23] MEDS ORDERED: CRANBERRY 400 MG PO SCH (09:00)
[2019-07-23] MEDS: Sennosides 8.6 MG TABLET PO SCH ×2 (11:28→21:16)
--- NOTE | 2019-07-23 12:25 | Orthopedics Progress Note ---
Date of Encounter: 07/23/19 Time of Encounter: 12:30 - Assessment and Plan (1) Status post kyphoplasty Status: Acute (2) Osteopenia determined by x-ray Status: Chronic (3) Compression fx, thoracic spine Status: Resolved Qualifiers: Encounter type: subsequent encounter Thoracic vertebra fracture level: T11 Fracture healing: with routine healing Qualified Code(s): S22.080D - Wedge compression fracture of T11-T12 vertebra, subsequent encounter for fracture with routine healing Subjective Principal diagnosis: Vertebral compression fracture, osteopenia Interval history: POD#1 s/p Kyphoplasty T11, T12 [Osteopenia, vertebral compression fracture] 07/22/19 Patient seen at bedside. A&Ox3 Dressing and incision c/d/i No calf tenderness, erythema, or warmth. Neurovascularly intact b/l LE. Labwork, vitals, and medications reviewed. Pain control: Adequate Participating in therapy. All questions and concerns addressed. Educated on use of incentive spirometer, ambulation, and hydration. Patient educated on post-operative restrictions and care. Addressed: see above. Patient course and disposition discussed with Dr. Fernandes D/C plan: Per hospitalist primary team Keep outpatient ortho follow up as scheduled Objective Vital signs: Vital Signs Temp Pulse Resp BP Pulse Ox 07/23/19 12:18 99.8 F H 69 16 123/78 97 07/23/19 07:45 98.0 F 79 15 161/75 98 07/23/19 07:26 98.0 F 66 99 148/79 07/23/19 03:00 98.7 F 62 17 115/67 97 07/23/19 00:25 98.6 F 76 14 132/76 95 07/22/19 23:25 99.2 F 79 14 121/75 94 07/22/19 22:24 99.4 F 78 17 131/75 93 07/22/19 21:57 99.1 F 81 16 127/75 07/22/19 21:24 99.3 F 80 16 132/77 91 07/22/19 21:02 100.4 F H 83 16 147/68 93 07/22/19 20:52 80 18 154/69 94 07/22/19 20:42 78 22 165/69 96 07/22/19 20:32 99.4 F 82 24 177/76 96 07/22/19 20:22 81 22 184/79 95 07/22/19 20:12 80 22 171/91 95 07/22/19 20:02 98.1 F 82 18 150/88 95 07/22/19 15:49 98.7 F 52 16 104/67 95 Intake and Output 07/22/19 07/23/19 07/23/19 23:59 07:59 15:59 Intake Total 400 / 400 Output Total 303 / 303 250 / 250 Balance -303 / -303 150 / 150 Intake: IV Fluids 100 / 100 Ancef 2,000 MG In 0.9 % Sodium 100 / 100 Chloride 100 ML @ 200 mls/hr IVPB Q8HR ANDREW Rx#:[id number] Oral 300 / 300 Output: Urine 300 / 300 250 / 250 Estimated Blood Loss Other: Weight 88.5 kg Patient Weight 07/23/19 23:59 Weight 88.5 kg - Labs CBC & BMP: 07/24/19 03:20 07/24/19 03:20 Labs: Abnormal lab results Sodium 132 mEq/L (136-145) L 07/21/19 00:55 Est GFR (Non-Af Amer) 55 (> 60) L 07/21/19 00:55 Calculated Osmolality 277 (280-300) L 07/21/19 00:55 Consult Discharge Plan - Plan Additional Instructions: Discharge Instructions: Lumbar Please call [facility] ([phone]), your Primary Care Physician, or report to the ER if you have any of the following symptoms: Fever greater that 101.5, increased pain/redness/drainage/odor for your incision site or any other concerning symptoms. ACTIVITY * May Shower * No Tub Baths * No lifting greater than 10 pounds * No Smoking * No Swimming * No off Ground Activities (Running, Climbing, Ladders, Horseback Riding) * No Driving * Wear Back Brace when up walking if lumbar fusion done * Incentive Spirometer 10 times an hour MEDICATIONS: Upon discharge resume your home medications. Take all the medications as prescribed. Take a stool softener if taking narcotic pain medications. Stool softeners are only effective if you drink enough fluids. Drink 6-8 glass of water or fluids a day, unless this is not allowed for another health problem. Despite using stool softeners, if you haven't had a bowel movement in 3 days, please switch to a gentle laxative. Gentle laxatives are sold over the counter. You should have a bowel movement within 24 hours, if not call the office. You will be discharged from the hospital with a prescription for pain medication. You are encouraged to decrease the use of narcotic pain medication as tolerated. Should you require a refill, please call the office. It is best to call 48-72 hours in advance of needing a prescription refill so you don't run out of medication. WOUND CARE: Remove Dressing Tomorrow. Leave incision open to air. Pat dry when you get out of the shower. FOLLOW-UP: Please follow up with your surgeon in the orthopedic clinic in 2 weeks from the day of surgery. You also require outpatient cardiology follow up for aortic stenosis and pulmonary hypertension in the next 4-6 weeks. Referral has been placed. If you follow with a different doctor you may schedule with your established provider References: [employer] ([email or web address].org) Referrals: Isaac Fernandes Jr, MD [Partnered Physician] - Esperanza Paulson MD [Primary Care Provider] - Galdino Serna DO [Partnered Physician] - Prescriptions: Docusate [Colace] 100 mg PO BID 14 Days #28 capsule HYDROcodone/Acet 5/325 mg [[place] 5-325 mg] 1 tab PO Q6H PRN 5 Days #20 tablet PRN Reason: Severe Pain Sennosides [Senna] 8.6 mg PO DAILY PRN 10 Days #10 tablet PRN Reason: Constipation
--- NOTE | 2019-07-23 13:51 | Internal Med Progress Note ---
<Vin Crews - Last Filed: 07/23/19 15:29> Hospitalist Progress Note - Encounter Date of Encounter: 07/23/19 Time of Encounter: 13:51 - Subjective Interval History: Kyphoplasty performed yesterday without incident. No acute events overnight. Patient complains of continued back pain this morning which is understandable. She also complains of constipation. - Exam Vitals: Temp Pulse Resp BP Pulse Ox 99.8 F H 69 16 123/78 97 07/23/19 12:18 07/23/19 12:18 07/23/19 12:18 07/23/19 12:18 07/23/19 12:18 Exam: General: Sitting up in chair, mildly uncomfortable, alert and oriented 3 Head: Atraumatic, normocephalic. Eyes: EOMI, conjunctiva normal. ENT: Mucous membranes moist. Thoracic: CTA bilaterally, no wheezing, rales, ronchi. Cardio: Normal S1 and S2, regular rate and rhythm, 4+ crescendo-decresendo systolic murmur best heard at aortic area. Abdomen: Soft, nontender, nondistended. BS normoactive throughout. Back: Pain worse with lumbar flexion, laying supine, ambulation. Extremities: Warm, no clubbing, cyanosis. Varicosities throughout. No edema. Skin: Intact. No rashes, bruises, or ulcers Neuro: CN II-XII grossly intact. Sensation intact. - Assessment and Plan (1) Status post kyphoplasty Current Visit: Yes Status: Acute Assessment and Plan: T11, T12 kyphoplasty performed yesterday by orthopedic spine surgery without incident As of today patient has minimal back pain but no other complaints Awaiting further orthopedic recommendations, patient is currently medically stable Physical therapy did evaluate the patient and did not recommend any further inpatient physical therapy and states patient is stable for home health PT We will await further orthopedic recommendations for discharge disposition and timeline (2) Pulmonary hypertension Current Visit: No Status: Chronic Assessment and Plan: Echocardiogram was performed for presurgical cardiac clearance Report demonstrated moderate left ventricular diastolic dysfunction with preserved ejection fraction of 66 5% Moderate aortic stenosis was also noted, which mirrors previous echocardiogram 1 year ago Severe pulmonary hypertension was documented, which was mild on previous echocardiogram 1 year ago Patient is not currently having any complications regarding shortness of breath, chest pain, or other ACS symptoms We will recommend referral/follow-up with cardiology at discharge (3) Compression fx, thoracic spine Current Visit: Yes Status: Resolved (4) Aortic stenosis Current Visit: No Status: Chronic (5) HTN (hypertension) Current Visit: No Status: Chronic Assessment and Plan: Patient has history of hypertension, home atenolol was held for surgery, patient has since been normotensive, will reinitiate if necessary and we will reinitiate at discharge DVT Prophylaxis: Sequential compression devices - Time Spent with Patient Total time spent is greater than 50% in coordination of care (as documented) at patient's floor/unit and/or counseling patient: Internal Medicine: Result - Labs CBC & Chem 7: 07/22/19 05:20 07/22/19 05:20 - Impressions Impressions Fluoroscopy 07/22/19 19:14 IMPRESSION: Please see operative report for further details. D/ / Blake Xiao MD / Blake Xiao MD Interpreting Provider: Blake Xiao MD Lumbar Spine X-Ray 07/22/19 19:14 IMPRESSION: Please see operative report for further details. D/ / Blake Xiao MD / Blake Xiao MD Interpreting Provider: Blake Xiao MD Xray Preliminary Report 07/22/19 19:14 IMPRESSION: Please see operative report for further details. D/ / Blake Xiao MD / Blake Xiao MD Interpreting Provider: Blake Xiao MD Consult Discharge Plan - Plan Referrals: Esperanza Paulson MD [Primary Care Provider] - <Tuyet Vanegas - Last Filed: 07/23/19 16:08> Hospitalist Progress Note - Encounter Date of Encounter: 07/23/19 - Exam Vitals: Temp Pulse Resp BP Pulse Ox 99.8 F H 69 16 123/78 97 07/23/19 12:18 07/23/19 12:18 07/23/19 12:18 07/23/19 12:18 07/23/19 12:18 - Assessment and Plan (1) Anemia Current Visit: No Status: Chronic (2) Compression fx, thoracic spine Current Visit: Yes Status: Resolved (3) HTN (hypertension) Current Visit: No Status: Chronic (4) Aortic stenosis Current Visit: No Status: Chronic - Time Spent with Patient Total time spent is greater than 50% in coordination of care (as documented) at patient's floor/unit and/or counseling patient: Internal Medicine: Result - Labs CBC & Chem 7: 07/22/19 05:20 07/22/19 05:20 - Impressions Impressions Fluoroscopy 07/22/19 19:14 IMPRESSION: Please see operative report for further details. D/ / Blake Xiao MD / Blake Xiao MD Interpreting Provider: Blake Xiao MD Lumbar Spine X-Ray 07/22/19 19:14 IMPRESSION: Please see operative report for further details. D/ / Blake Xiao MD / Blake Xiao MD Interpreting Provider: Blake Xiao MD Xray Preliminary Report 07/22/19 19:14 IMPRESSION: Please see operative report for further details. D/ / Blake Xiao MD / Blake Xiao MD Interpreting Provider: Blake Xiao MD - Attending Attestation I examined this patient and my medical decision-making was reviewed with the Resident Physician Dr Crews. I agree with the documented findings, disposition and treatment plan as described except to the extent set forth below. Ms Walters is currently hospitalized for compression fracture. she is awake in chair, complaining of pain being only decreased to an 8/10 with pain med this morning + constipation with no bm since surgery, + flatus, no n/v or abd pain with eating, no urinary issues. gen- alert, awake,appears stated age cv- reg rate and rhythm, normal s1,s2, + sm lungs- ctabl, no wheezing, rhonchi or crackles, normal resp effort on o2 nc abd- soft, non tender, + distended, + bs neuro- AAOx3 Thoracic spine fx s/p kyphoplasty -post op care as per ortho, pt rec for HHC on dc, pain control (just started taking 10 mg oxy dosing, will monitor for effect) Acute Hypoxic resp failure- o2 never weaned post op, suspected related to severe pulm htn, cont incentive spirometry, increase activity and nursing to attempt to wean today constipation- colace + senna and monitor further dx and plan as noted by resident <Vin Crews - Last Filed: 07/23/19 15:29> (3) Compression fx, thoracic spine Qualifiers: Encounter type: subsequent encounter Thoracic vertebra fracture level: T11 Fracture healing: with routine healing Qualified Code(s): S22.080D - Wedge compression fracture of T11-T12 vertebra, subsequent encounter for fracture with routine healing (4) Aortic stenosis Qualifiers: Cardiac valve disease etiology: etiology unspecified Qualified Code(s): I35.0 - Nonrheumatic aortic (valve) stenosis (5) HTN (hypertension) Qualifiers: Hypertension type: essential hypertension Qualified Code(s): I10 - Essential (primary) hypertension <Tuyet Vanegas - Last Filed: 07/23/19 16:08> (1) Anemia Qualifiers: Anemia type: other cause Other causes of anemia: chronic disease, other Qualified Code(s): D63.8 - Anemia in other chronic diseases classified elsewhere (2) Compression fx, thoracic spine Qualifiers: Encounter type: subsequent encounter Thoracic vertebra fracture level: T11 Fracture healing: with routine healing Qualified Code(s): S22.080D - Wedge compression fracture of T11-T12 vertebra, subsequent encounter for fracture with routine healing (3) HTN (hypertension) Qualifiers: Hypertension type: essential hypertension Qualified Code(s): I10 - Essential (primary) hypertension (4) Aortic stenosis Qualifiers: Cardiac valve disease etiology: etiology unspecified Qualified Code(s): I35.0 - Nonrheumatic aortic (valve) stenosis
[2019-07-23] MEDS: Acetaminophen 325 MG TABLET PO PRN (15:35)
[2019-07-23] MEDS: tiZANidine 4 MG TABLET PO PRN (21:16)
[2019-07-24] MEDS: Methocarbamol 500 MG TABLET PO SCH ×2 (00:29→08:29)
[2019-07-24 03:38] LABS: Hematocrit 37.1 % (35.3-44.9); Hemoglobin 12.2 g/dL (11.5-15.4); Immature Granulocytes % 0.4 % (0-4); Lymphocytes % 15.2 %; Mean Corpuscular HGB Conc 32.9 g/dL (31.6-35.5); Mean Corpuscular Hemoglobin 29.5 pg (28.0-33.3); Mean Corpuscular Volume 89.8 fL (83.0-100.0); Mean Platelet Volume 9.2 fL (9.4-12.4); Platelet Count 159 K/mcL (140-400); Red Blood Count 4.13 M/mcL (3.82-4.97); Red Cell Distribution Width 13.8 % (11.5-14.5); Segmented Neutrophils % 70.3 %; White Blood Count 8.3 K/mcL (4.3-11.1)
[2019-07-24 03:39] LABS: Basophils % 0.4 %; Eosinophils # 0.4 K/mcL (0.0-0.6); Eosinophils % 4.6 %; Lymphocytes # 1.3 K/mcL (0.6-4.6); Monocytes # 0.8 K/mcL (0.0-1.3); Monocytes % 9.1 %; Neutrophils # 5.9 K/mcL (1.6-8.9)
[2019-07-24 03:58] LABS: BUN/Creatinine Ratio 21 (6-26); Blood Urea Nitrogen 15 mg/dL (8-23); Carbon Dioxide 26 mEq/L (23-29); Chloride 99 mEq/L (98-107); Glucose 97 mg/dL (70-105); Osmolality,Calculated 275 (280-300); Potassium 4.4 mEq/L (3.5-5.1); Sodium 132 mEq/L (136-145); eGFR For African Americans > 60 (> 60); eGFR For Non-African Americans > 60 (> 60)
[2019-07-24] MEDS: tiZANidine 4 MG TABLET PO PRN (05:51)
--- NOTE | 2019-07-24 07:19 | Discharge Summary ---
<Vinicio Cortez Adelina - Last Filed: 07/24/19 12:54> - NOTES TO OUTPATIENT PROVIDER Notes to Outpatient Provider: Mrs. Walters is a 73 F who presented to the [facility] for acute thoracic back pain. MRI of the thoracic and lumbar spines revelaed traumatic compression fractures of T11 and T12 w/o spinal cord involvement. She was admitted, pain was managed appropriately and Dr. Mendoza was consulted for possible kyphoplasty. Kyphoplasty performed on 07/22/19 without complication. Plan for home PT/OT, f/u with Dr. Mendoza in 2 weeks, routine cardiology and PCP follow up. Orders not resulted at time of discharge: Pending orders 07/22/19 19:30 Surgical Pathology [PTH] Routine Date of Encounter: 07/24/19 Time of Encounter: 07:19 - Discharge Diagnosis (1) Status post kyphoplasty Priority: Primary Status: Acute Assessment and Plan: T11, T12 kyphoplasty performed on 07/22/19 w/o complication. Patient endorses continued low back pain that is unchanged from yesterday. She is medically stable at this time. - Plan to discharge today. F/U with Dr. Mendoza in 2 weeks. - PT evaluated patient, discontinued inpatient therapy and recommended home health PT. Order for home health PT placed. - Ibuprofen Q6H PRN for pain. - Percocet 10/325 Q4H. (2) Compression fx, thoracic spine Priority: Primary Status: Resolved Assessment and Plan: Mrs. Walters presented with acute thoracic and lumbar spine pain secondary to fall. Evaluation and MRI revealed acute fx and edema at T11 and T12. Questionable fracture at T10. Currently comfortable, pain tolerable. - Home health PT/OT at discharge. - Ibuprofen, percocet for pain. Qualifiers: Encounter type: subsequent encounter Thoracic vertebra fracture level: T11 Fracture healing: with routine healing Qualified Code(s): S22.080D - Wedge compression fracture of T11-T12 vertebra, subsequent encounter for fracture with routine healing (3) Aortic stenosis Priority: Secondary Status: Chronic Assessment and Plan: Pt with asymptomatic moderate aortic valve stenosis. Repeat echo demonstrated valve area of 0.92, was 1.11 on prior exam 1 year ago. She was cleared for kyphoplasty per cardiology. - Recommend routine follow-up with cardiology in 4-6 weeks. Qualifiers: Cardiac valve disease etiology: etiology unspecified Qualified Code(s): I35.0 - Nonrheumatic aortic (valve) stenosis (4) HTN (hypertension) Priority: Secondary Status: Chronic Assessment and Plan: HTN was uncontrolled at admission secondary to pain. BP was stabilized with home atenolol, held prior to surgery. Pt remained asymptomatic throughout admission. - Reinitiate atenolol today at discharge. - PCP follow-up for continued management. Qualifiers: Hypertension type: essential hypertension Qualified Code(s): I10 - Essential (primary) hypertension (5) Pulmonary hypertension Priority: Secondary Status: Chronic Assessment and Plan: Severe pulmonary hypertension documented on repeat echo dated 07/21/19. This was mild on echocardiogram 1 year ago. Patient denies any complications regarding shortness of breath, chest pain, or other ACS symptoms - Patient to follow-up with out patient cardiology in 4-6 weeks. Hospital course: Ms. Walters is a 73 year old female who presented to [facility] with acute thoracic and lumbar pain secondary to fall on cement while gardening. She admitted to hitting her head on the concrete, denied LOC. CT imaging of the head in ED was negative for acute bleed and fracture. CR of the spine revealed possible compression fracture at L3. Patient was admitted for further evaluation. Pain was well controlled and MRI of the thoracic and lumbar spines performed. MRI revealed: - Extensive edema involving the T11 vertebral body without evidence of significant retropulsion of the spinal canal or significant height loss. Findings are most concerning for acute fracture. - Edema involving the T12 superior endplate is also concerning for acute endplate fracture. No significant retropulsion of spinal canal. - Tiny fracture involving the anterior inferior aspect of the T10 vertebral body. Possible disruption of anterior longitudinal ligament at T10-T11. - No evidence of L3 superior endplate fracture, suspected on CT examination. - Possible underlying ankylosing spondylitis within thoracic spine. Thoracic kyphosis. - Small paravertebral hematoma adjacent to the T11 and T12 vertebral body. - T2 hyperintense left renal lesion is most likely a cyst Spinal surgery was consulted and Dr. Mendoza recommended kyphoplasty of T11 and T12. PT/OT was consulted for inpatient rehab. Pulmonolgy and cardiology were consulted for surgical clearance secondary to possible restrictive lung disease and chronic aortic stenosis. Pt was cleared for surgery. The patient was treated with kyphoplasty of T11/T12 on 07/22/19 without complications. She tolerated the procedure well and endorsed post procedural soreness that was unchanged. It was determined that she could be discharged per orthopedic recs and started on home health PT/OT. Discharge discussed with: patient - Time Spent with Patient Total time spent providing and/or coordinating discharge services: Time spent: Greater than 30 minutes - Discharge Medications Prescriptions: New Docusate [Colace] 100 mg PO BID 14 Days #28 capsule HYDROcodone/Acet 5/325 mg [[place] 5-325 mg] 1 tab PO Q6H PRN 5 Days #20 tablet PRN Reason: Severe Pain Sennosides [Senna] 8.6 mg PO DAILY PRN 10 Days #10 tablet PRN Reason: Constipation Continued Atenolol [Tenormin] 50 mg PO DAILY Aspirin [Lo-Dose Aspirin EC] 81 mg PO DAILY Tizanidine HCl [Zanaflex] 4 mg PO TID PRN PRN Reason: Pain Biotin 1 mg PO DAILY Cranberry 400 mg PO DAILY Sertraline [Zoloft] 150 mg PO DAILY Discontinued HYDROcodone/Acet 5/325 mg [[place] 5-325 mg] 1 tab PO Q4H PRN 5 Days #20 tab PRN Reason: Pain Methocarbamol [Robaxin] 500 mg PO Q8HR 5 Days #15 tablet Oxycodone HCl/Acetaminophen [Percocet 10-325 mg Tablet] 1 each PO QID PRN PRN Reason: Analgesia Home Medications: Aspirin [Lo-Dose Aspirin EC] 81 mg PO DAILY 11/20/16 [History] Atenolol [Tenormin] 50 mg PO DAILY 11/20/16 [History] Biotin 1 mg PO DAILY 07/19/19 [History] Cranberry 400 mg PO DAILY 07/19/19 [History] Sertraline [Zoloft] 150 mg PO DAILY 07/19/19 [History] Tizanidine HCl [Zanaflex] 4 mg PO TID PRN 07/19/19 [History] Docusate [Colace] 100 mg PO BID 14 Days #28 capsule 07/24/19 [Rx] HYDROcodone/Acet 5/325 mg [[place] 5-325 mg] 1 tab PO Q6H PRN 5 Days #20 tablet 07/24/19 [Rx] Sennosides [Senna] 8.6 mg PO DAILY PRN 10 Days #10 tablet 07/24/19 [Rx] Allergies/Adverse Reactions: Allergy/AdvReac Type Severity Reaction Status Date / Time codeine Allergy Unknown Unknown Verified 07/19/19 02:42 Horse/Equine Containing Allergy Unknown Unknown Verified 07/19/19 02:42 Products tetanus toxoid, adsorbed Allergy Unknown Unknown Verified 07/19/19 02:42 Date of admission: 07/20/19 16:35 Primary care physician: Esperanza Paulson MD Consults: 07/19/19 08:13 Consult to Physical Therapy [CONS] Routine Comment: Evaluate, develop and implement POC Reason for Consult: back pain after fall, possible L3 compression fx Does patient have active BEDREST order?: No Is patient medically & hemodynamically stable?: Yes 07/19/19 09:13 Consult to Nutrition [CONS] Routine Comment: Consulting Provider: NUTRITION Reason for Dietary Consult: MST Score 07/19/19 09:55 Consult to Orthopedic Surgery [CONS] Routine Consulting Provider: Isaac Fernandes Jr Reason for Consult: back pain, possible compression fx Call Completed: Yes 07/20/19 17:43 Consult to Cardiology [CONS] Routine Comment: Consulting Provider: Cardiology [facility] Reason for Consult: surgical clearance Time Notified: 17:44 Call Completed: Yes 07/21/19 08:13 Consult to Pulmonology [CONS] Routine Consulting Provider: [facility] [place] Reason for Consult: surgical clearance Time Notified: 08:13 Call Completed: Yes 07/22/19 21:37 Consult to Nurse Navigator [CONS] Routine Comment: spine navigator Consult to Occupational Therapy [CONS] Routine Comment: Evaluate, develop and implement POC Reason for Consult: Postoperative rehabilitation Does patient have active BEDREST order?: No Is patient medically & hemodynamically stable?: Yes Patient assessed for mobility or mobilized this visit?: No Consult to Physical Therapy [CONS] Routine Comment: Evaluate, develop and implement POC Reason for Consult: Postoperative rehabilitation Does patient have active BEDREST order?: No Is patient medically & hemodynamically stable?: Yes Patient assessed for mobility or mobilized this visit?: No 07/23/19 10:16 Consult to Invasive Line Access Team [CONS] Routine Reason for Consult: Limited access Line Type: EPIV 07/23/19 14:59 Consult to Strip Cleaner [CONS] Routine Reason for SW Consult: Discharge planning Discharging clinician: Vinicio Cortez Anticipated date of discharge: 07/24/19 - Constitutional Vitals: Temp Pulse Resp BP Pulse Ox 98.8 F 67 16 120/72 94 07/24/19 03:12 07/24/19 03:12 07/24/19 03:12 07/24/19 03:12 07/24/19 03:12 General appearance: Present: A&O X 3, no acute distress Exam: see below - Head Head exam: Present: atraumatic, normocephalic - Eye Eye exam: Present: EOMI, conjuntiva pink. Absent: scleral icterus Pupils: Present: PERRL - ENT ENT exam: Present: mucous membranes moist, normal exam - Neck Neck exam general surgery: Present: supple. Absent: tenderness - Respiratory Respiratory exam: Present: CTAB. Absent: rales, respiratory distress, rhonchi, wheezes - Cardiovascular Cardiovascular exam: Present: RRR, +S1, +S2, systolic murmur (+3 systolic ejection murmur correlates to chronic ). Absent: JVD - GI/Abdominal GI/Abdominal exam: Present: normal bowel sounds, soft. Absent: distended, guarding, tenderness - Extremities Exam Extremities exam: Present: pedal edema (Dependent, trace BLE edema w/v aricosities, unchanged. ), warm. Absent: cyanotic, tenderness - Incison Incision: Present: clean and dry - Back Exam Back exam: Present: paraspinal tenderness (present at the mid throacic and lower thoracic spine ), vertebral tenderness (present at mid thoracic, lower thoracic spine) - Neurological Exam Neurological exam: Present: alert, CN II-XII intact, oriented X3, no focal deficits. Absent: motor sensory deficit (denies bowel/bladder dysfunction) - Psychiatric Psychiatric exam: Present: normal mood - Skin Skin exam: Present: normal color. Absent: rash - Patient Status Disposition: Home Health Service Condition: Good Functional capacity at discharge: uses cane/walker Overall status at discharge: patient is progressing back to baseline - Discharge Instructions Follow Up With: Isaac Fernandes Jr, MD [Partnered Physician] - Esperanza Paulson MD [Primary Care Provider] - Galdino Serna DO [Partnered Physician] - Additional Instructions: Discharge Instructions: Lumbar Please call [facility] ([phone]), your Primary Care Physician, or report to the ER if you have any of the following symptoms: Fever greater that 101.5, increased pain/redness/drainage/odor for your incision site or any other concerning symptoms. ACTIVITY * May Shower * No Tub Baths * No lifting greater than 10 pounds * No Smoking * No Swimming * No off Ground Activities (Running, Climbing, Ladders, Horseback Riding) * No Driving * Wear Back Brace when up walking if lumbar fusion done * Incentive Spirometer 10 times an hour MEDICATIONS: Upon discharge resume your home medications. Take all the medications as prescribed. Take a stool softener if taking narcotic pain medications. Stool softeners are only effective if you drink enough fluids. Drink 6-8 glass of water or fluids a day, unless this is not allowed for another health problem. Despite using stool softeners, if you haven't had a bowel movement in 3 days, please switch to a gentle laxative. Gentle laxatives are sold over the counter. You should have a bowel movement within 24 hours, if not call the office. You will be discharged from the hospital with a prescription for pain medic ation. You are encouraged to decrease the use of narcotic pain medication as tolerated. Should you require a refill, please call the office. It is best to call 48-72 hours in advance of needing a prescription refill so you don't run out of medication. WOUND CARE: Remove Dressing Tomorrow. Leave incision open to air. Pat dry when you get out of the shower. FOLLOW-UP: Please follow up with your surgeon in the orthopedic clinic in 2 weeks from the day of surgery. You also require outpatient cardiology follow up for aortic stenosis and pulmonary hypertension in the next 4-6 weeks. Referral has been placed. If you follow with a different doctor you may schedule with your established provider References: [employer] ([email or web address]) - Diet and Activity Activity: as per physical therapy, increase activity as tolerated Diet: advance to your usual diet <Tuyet Vanegas - Last Filed: 07/24/19 13:51> Orders not resulted at time of discharge: Pending orders 07/22/19 19:30 Surgical Pathology [PTH] Routine Date of Encounter: 07/24/19 - Discharge Diagnosis (1) Anemia Status: Chronic Qualifiers: Anemia type: other cause Other causes of anemia: chronic disease, other Qualified Code(s): D63.8 - Anemia in other chronic diseases classified elsewhere (2) Compression fx, thoracic spine Status: Resolved Qualifiers: Encounter type: subsequent encounter Thoracic vertebra fracture level: T11 Fracture healing: with routine healing Qualified Code(s): S22.080D - Wedge compression fracture of T11-T12 vertebra, subsequent encounter for fracture with routine healing (3) HTN (hypertension) Status: Chronic Qualifiers: Hypertension type: essential hypertension Qualified Code(s): I10 - Essential (primary) hypertension (4) Aortic stenosis Status: Chronic Qualifiers: Cardiac valve disease etiology: etiology unspecified Qualified Code(s): I35.0 - Nonrheumatic aortic (valve) stenosis Hospital course: Ms. Walters is a 73 year old female - Time Spent with Patient Total time spent providing and/or coordinating discharge services: Date of admission: 07/20/19 16:35 Primary care physician: Esperanza Paulson MD Consults: 07/19/19 08:13 Consult to Physical Therapy [CONS] Routine Comment: Evaluate, develop and implement POC Reason for Consult: back pain after fall, possible L3 compression fx Does patient have active BEDREST order?: No Is patient medically & hemodynamically stable?: Yes 07/19/19 09:13 Consult to Nutrition [CONS] Routine Comment: Consulting Provider: NUTRITION Reason for Dietary Consult: MST Score 07/19/19 09:55 Consult to Orthopedic Surgery [CONS] Routine Consulting Provider: Isaac Fernandes Jr Reason for Consult: back pain, possible compression fx Call Completed: Yes 07/20/19 17:43 Consult to Cardiology [CONS] Routine Comment: Consulting Provider: Cardiology [facility] Reason for Consult: surgical clearance Time Notified: 17:44 Call Completed: Yes 07/21/19 08:13 Consult to Pulmonology [CONS] Routine Consulting Provider: [facility] [place] Reason for Consult: surgical clearance Time Notified: 08:13 Call Completed: Yes 07/22/19 21:37 Consult to Nurse Navigator [CONS] Routine Comment: spine navigator Consult to Occupational Therapy [CONS] Routine Comment: Evaluate, develop and implement POC Reason for Consult: Postoperative rehabilitation Does patient have active BEDREST order?: No Is patient medically & hemodynamically stable?: Yes Patient assessed for mobility or mobilized this visit?: No Consult to Physical Therapy [CONS] Routine Comment: Evaluate, develop and implement POC Reason for Consult: Postoperative rehabilitation Does patient have active BEDREST order?: No Is patient medically & hemodynamically stable?: Yes Patient assessed for mobility or mobilized this visit?: No 07/23/19 10:16 Consult to Invasive Line Access Team [CONS] Routine Reason for Consult: Limited access Line Type: EPIV 07/23/19 14:59 Consult to Strip Cleaner [CONS] Routine Reason for SW Consult: Discharge planning - Constitutional Vitals: Temp Pulse Resp BP Pulse Ox 98.1 F 60 18 149/71 95 07/24/19 11:04 07/24/19 11:04 07/24/19 11:04 07/24/19 11:04 07/24/19 11:04 - Attending Attestation I examined this patient and my medical decision-making was reviewed with the Resident Physician Dr Cortez. I agree with the documented findings, disposition and treatment plan as described except to the extent set forth below. Ms Walters is currently hospitalized for compression fracture. She is s/p kyphoplasty and is discharging to home [facility] in stable condition she is awake and working with OT. no pain currently. + flatus but no bm yet today though she feels she will need to go soon. No abd pain, n/v, tolerating diet without issue. Urinating without difficulty. discussed dc plan. she has no questions or concerns. gen- alert, awake,appears stated age cv- reg rate and rhythm, normal s1,s2, + sm lungs- ctabl, normal resp effort on room air abd- soft, non tender, non distended, + bs neuro- AAOx3 Thoracic spine fx s/p kyphoplasty -post op care as per ortho, [facility] for pt/ot on dc, resident not is incorrect- prn opiate for next 5 days, no nsaids ordered Acute Hypoxic resp failure resolved- weaned to room air without issue constipation- colace + senna / Pulm HTN- fu with cards out for continued care further dx and plan as noted by resident time spent on dc 45 min
[2019-07-24] MEDS: Sennosides 8.6 MG TABLET PO SCH (08:29)
[2019-07-24] MEDS: Acetaminophen 325 MG TABLET PO PRN (08:29)
--- NOTE | 2019-07-24 08:41 | Physician Discharge Referral ---
<Vinicio Cortez - Last Filed: 07/24/19 13:31> Home Health/Hosp Referral Info Transfer to: Home Health Provider in Charge Post Discharge: PCP - Diagnosis (1) Status post kyphoplasty Priority: Primary (Patient s/p kyphoplasty of traumatic compression fx T11/T12. Pain improving, still present. Difficulty with ambulation. Plan for home health PT/OT. F/U with Dr. Fernandes in 2 weeks. Routine cardiology and PCP follow up.) Status: Acute (2) Compression fx, thoracic spine Priority: Primary Status: Resolved (3) Aortic stenosis Priority: Secondary Status: Chronic (4) HTN (hypertension) Priority: Secondary Status: Chronic - Respiratory Orders None Smoking Cessation: Smoking cessation has been advised. For more information, call the [place] Tobacco Quit Line at 7-430-XGTI-NOW. - Diet/Nutrition Diet/Nutrition Orders: Regular - Activity Activity Orders: Up ad [place], Ambulate Activity: List: No lifting, twisting, bending (forward flexion). Until seen by Dr. Fernandes at 2 week follow-up. - Services Needed Following services are medically necessary services: Physical Therapy, Occupational Therapy - Transfer Medications Prescriptions: Docusate [Colace] 100 mg PO BID 14 Days #28 capsule HYDROcodone/Acet 5/325 mg [[place] 5-325 mg] 1 tab PO Q6H PRN 5 Days #20 tablet PRN Reason: Severe Pain Sennosides [Senna] 8.6 mg PO DAILY PRN 10 Days #10 tablet PRN Reason: Constipation Home Medications: Aspirin [Lo-Dose Aspirin EC] 81 mg PO DAILY 11/20/16 [History] Atenolol [Tenormin] 50 mg PO DAILY 11/20/16 [History] Biotin 1 mg PO DAILY 07/19/19 [History] Cranberry 400 mg PO DAILY 07/19/19 [History] Sertraline [Zoloft] 150 mg PO DAILY 07/19/19 [History] Tizanidine HCl [Zanaflex] 4 mg PO TID PRN 07/19/19 [History] Docusate [Colace] 100 mg PO BID 14 Days #28 capsule 07/24/19 [Rx] HYDROcodone/Acet 5/325 mg [[place] 5-325 mg] 1 tab PO Q6H PRN 5 Days #20 tablet 07/24/19 [Rx] Sennosides [Senna] 8.6 mg PO DAILY PRN 10 Days #10 tablet 07/24/19 [Rx] Allergies/Adverse Reactions: Allergy/AdvReac Type Severity Reaction Status Date / Time codeine Allergy Unknown Unknown Verified 07/19/19 02:42 Horse/Equine Containing Allergy Unknown Unknown Verified 07/19/19 02:42 Products tetanus toxoid, adsorbed Allergy Unknown Unknown Verified 07/19/19 02:42 Certification: Further, I certify that my clinical findings support that this patient is homebound (i.e. absences from home require considerable and taxing effort and are for medical reasons or temple services or infrequently or short duration when for other reasons) because: Homebound Reason: Patient requires assistance of a person or device to safely leave home, Post-surgery restriction and or conditions limit ability to leave home, Leaving home requires considerable and taxing effort due to condition Attestation: My signature below is to certify that this patient is under my care and that I, or nurse practitioner, or a physician's dietary assistant working with me, has a [id number] encounter with this patient. <Tuyet Vanegas - Last Filed: 07/24/19 13:52> - Diagnosis (1) Anemia Status: Chronic (2) Compression fx, thoracic spine Status: Resolved (3) HTN (hypertension) Status: Chronic (4) Aortic stenosis Status: Chronic - Respiratory Orders Smoking Cessation: Smoking cessation has been advised. For more information, call the [place] Tobacco Quit Line at 8-814-DDAH-NOW. Certification: Further, I certify that my clinical findings support that this patient is homebound (i.e. absences from home require considerable and taxing effort and are for medical reasons or temple services or infrequently or short duration when for other reasons) because: Attestation: My signature below is to certify that this patient is under my care and that I, or nurse practitioner, or a physician's dietary assistant working with me, has a [id number] encounter with this patient.
[2019-07-24 11:09] VITALS: BP 149/71
--- NOTE | 2019-07-24 11:33 | Electrocardiograph Report ---
[employer] [facility] Test Date: 2019-07-22 Pat Name: Maranda Walters Department: 101 Room: [facility] Gender: F Jewelry Maker: : [id number] Requested By: Varun Liu Order Number: [id number] Reading MD: Sherman Booker Measurements Intervals [place] Rate: 67 P: 84 CT: 161 QRS: -16 QRSD: 96 T: 15 QT: 393 QTc: 408 Interpretive Statements SINUS RHYTHM WITH OCCASIONAL SUPRAVENTRICULAR PREMATURE COMPLEXES MINIMAL VOLTAGE CRITERIA FOR LVH, CONSIDER NORMAL VARIANT Electronically Signed On 07-24-2019 11:32:01 EDT by Sherman Booker
== END 2019-07-24 13:40 | disposition home health service (06) | DRG 477 ==
LOC: SUATTDRO → 3NENU 02:20 → EMEROOARM 02:20 → SUATTDRO 07:43 → 3NENU 08:39 → SUATTDRO 07-20 16:35
PROVIDERS: ADMIT Internal Medicine; ATTEND Internal Medicine

== ENCOUNTER 2020-04-26 23:18 | Observation (INO) ==
[2020-04-26] MEDS ORDERED: 0.9 % Sodium Chloride 250 ML IVC ONE (23:32)
[2020-04-26] MEDS ORDERED: Albuterol 2.5 MG/3 ML NEBULIZER IH ONE (23:36)
[2020-04-26 23:51] LABS: Basophils % 0.3 %; Eosinophils # 0.6 K/mcL (0.0-0.6); Eosinophils % 6.8 %; Hematocrit 36.6 % (35.3-44.9); Hemoglobin 11.7 g/dL (11.5-15.4); Immature Granulocytes % 0.2 % (0-4); Lymphocytes # 2.1 K/mcL (0.6-4.6); Lymphocytes % 23.5 %; Mean Corpuscular Hemoglobin 29.1 pg (28.0-33.3); Mean Platelet Volume 10.3 fL (9.4-12.4); Monocytes # 0.5 K/mcL (0.0-1.3); Monocytes % 5.6 %; Neutrophils # 5.8 K/mcL (1.6-8.9); Platelet Count 190 K/mcL (140-400); Red Blood Count 4.02 M/mcL (3.82-4.97); Red Cell Distribution Width 13.5 % (11.5-14.5); Segmented Neutrophils % 63.6 %; White Blood Count 9.1 K/mcL (4.3-11.1)
[2020-04-27 00:31] LABS: Alanine Aminotransferase 23 Units/L (7-52); Albumin/Globulin Ratio 1.3 (1.1-2.2); Alkaline Phosphatase 83 Units/L (34-104); Aspartate Amino Transferase 33 Units/L (13-39); BUN/Creatinine Ratio 22 (6-26); Bilirubin,Total 0.3 mg/dL (0.3-1.0); Blood Urea Nitrogen 19 mg/dL (8-23); Calcium 9.2 mg/dL (8.6-10.3); Carbon Dioxide 25 mEq/L (23-29); Chloride 106 mEq/L (98-107); Globulin 3.1 g/dL (2.4-3.5); Glucose 209 mg/dL (70-105); Osmolality,Calculated 290 (280-300); Potassium 4.1 mEq/L (3.5-5.1); Sodium 136 mEq/L (136-145); Total Protein 7.1 g/dL (6.4-8.9); Troponin I < 0.03 ng/mL (< 0.04); eGFR For African Americans > 60 (> 60); eGFR For Non-African Americans > 60 (> 60)
[2020-04-27] MEDS ORDERED: Azithromycin 500 MG in 0.9 % Sodium Chloride 250 ML IVPB ONE (01:19)
[2020-04-27 01:47] LABS: Bilirubin,Urine Negative (Negative); Blood,Urine Negative (Negative); Clarity,Urine Clear (Clear); Color,Urine Yellow (Yellow); Glucose,Urine (UA) Normal (Normal); Ketones,Urine Negative (Negative); Leukocyte Esterase,Urine Moderate (Negative); Nitrite,Urine Negative (Negative); PH,Urine 5.5 pH Units (5.0-8.0); Protein,Urine Negative (Neg-Trace); Specific Gravity,Urine 1.014 (1.010-1.025); Urobilinogen,Urine Normal (Normal)
[2020-04-27 01:49] LABS: Bacteria,Urine Many per hpf (None-Few); Hyaline Casts,Urine None Seen per lpf (None-Few); RBC,Urine 0-3 per hpf (0-3); Squamous Epithelial Cell,Urine Many per lpf (None-Few); WBC,Urine 15-30 per hpf (0-3)
[2020-04-27] MEDS ORDERED: *HR* Dextrose 50 % in Water (Syg) 50 ML SYRINGE IVP PRN (03:31)
[2020-04-27] MEDS ORDERED: Dextrose Gel 15 GM/37.5 ML TUBE PO PRN ×2 (03:31)
[2020-04-27] MEDS ORDERED: D5% in Water 1,000 ML IVC PRN (03:31)
[2020-04-27] MEDS: Insulin LISPRO 300 UNITS/3 ML VIAL SQ SCH ×3 (04:47→12:18)
[2020-04-27 05:28] LABS: Basophils % 0.3 %; Eosinophils # 0.3 K/mcL (0.0-0.6); Eosinophils % 3.1 %; Hemoglobin 10.7 g/dL (11.5-15.4); Immature Granulocytes % 0.2 % (0-4); Lymphocytes # 1.2 K/mcL (0.6-4.6); Lymphocytes % 13.3 %; Mean Corpuscular HGB Conc 32.4 g/dL (31.6-35.5); Mean Corpuscular Hemoglobin 29.6 pg (28.0-33.3); Mean Corpuscular Volume 91.2 fL (83.0-100.0); Mean Platelet Volume 10.6 fL (9.4-12.4); Monocytes # 0.6 K/mcL (0.0-1.3); Monocytes % 6.4 %; Neutrophils # 6.8 K/mcL (1.6-8.9); Platelet Count 166 K/mcL (140-400); Red Blood Count 3.62 M/mcL (3.82-4.97); Red Cell Distribution Width 13.6 % (11.5-14.5); Segmented Neutrophils % 76.7 %; White Blood Count 8.9 K/mcL (4.3-11.1)
[2020-04-27 05:45] LABS: Alanine Aminotransferase 20 Units/L (7-52); Albumin 3.6 g/dL (3.5-5.7); Albumin/Globulin Ratio 1.4 (1.1-2.2); Alkaline Phosphatase 72 Units/L (34-104); Aspartate Amino Transferase 27 Units/L (13-39); BUN/Creatinine Ratio 22 (6-26); Bilirubin,Total 0.3 mg/dL (0.3-1.0); Blood Urea Nitrogen 15 mg/dL (8-23); Calcium 8.9 mg/dL (8.6-10.3); Carbon Dioxide 28 mEq/L (23-29); Chloride 108 mEq/L (98-107); Globulin 2.6 g/dL (2.4-3.5); Glucose 89 mg/dL (70-105); Osmolality,Calculated 290 (280-300); Potassium 4.1 mEq/L (3.5-5.1); Sodium 140 mEq/L (136-145); Total Protein 6.2 g/dL (6.4-8.9); eGFR For African Americans > 60 (> 60); eGFR For Non-African Americans > 60 (> 60)
[2020-04-27] MEDS ORDERED: *HR* Heparin 5,000 UNIT/ML VIAL SQ SCH (06:00)
[2020-04-27] MEDS ORDERED: (Biotin 5,000 MCG) PO SCH (09:00)
[2020-04-27] MEDS ORDERED: (Ubidecarenone [Co Q-10] 200 MG) PO SCH (09:00)
[2020-04-27] MEDS ORDERED: (Fish Oil 1,000 Mg Softgel) PO SCH (09:00)
[2020-04-27] MEDS ORDERED: Multivit/Ca/Min/Fe/FA 1 TAB TABLET PO SCH (09:00)
[2020-04-27] MEDS ORDERED: cefTRIAXone 1,000 MG in Water for inj. (sterile) 10 ML IVP SCH (09:00)
[2020-04-27] MEDS ORDERED: Vitamin B Complex/Vit C/Vit E 1 EACH TABLET PO SCH (09:00)
[2020-04-27] MEDS ORDERED: atenoloL 50 MG TABLET PO SCH (09:00)
[2020-04-27 10:46] VITALS: BP 122/73
[2020-04-27] MEDS ORDERED: Azithromycin 500 MG in 0.9 % Sodium Chloride 250 ML IVPB SCH (18:00)
== END 2020-04-27 15:00 | disposition home or self-care (01) ==
LOC: EMEROOARM 23:18 → 3BNU 23:18
PROVIDERS: ADMIT Student in an Organized Health Care Education/Training Program; ATTEND Student in an Organized Health Care Education/Training Program

== ENCOUNTER 2020-05-18 23:24 | Observation (INO) ==
[2020-05-19 00:03] LABS: Basophils % 0.3 %; Eosinophils # 0.6 K/mcL (0.0-0.6); Eosinophils % 6.1 %; Hematocrit 36.3 % (35.3-44.9); Hemoglobin 11.2 g/dL (11.5-15.4); Immature Granulocytes % 1.1 % (0-4); Lymphocytes # 1.6 K/mcL (0.6-4.6); Lymphocytes % 17.2 %; Mean Corpuscular HGB Conc 30.9 g/dL (31.6-35.5); Mean Corpuscular Hemoglobin 27.7 pg (28.0-33.3); Mean Corpuscular Volume 89.6 fL (83.0-100.0); Mean Platelet Volume 10.2 fL (9.4-12.4); Monocytes # 0.7 K/mcL (0.0-1.3); Monocytes % 7.3 %; Neutrophils # 6.2 K/mcL (1.6-8.9); Platelet Count 217 K/mcL (140-400); Red Blood Count 4.05 M/mcL (3.82-4.97); Red Cell Distribution Width 13.1 % (11.5-14.5); White Blood Count 9.1 K/mcL (4.3-11.1)
[2020-05-19 00:12] LABS: Prothrombin Time 11.4 Seconds (9.4-12.1)
[2020-05-19 00:15] LABS: Activated Partial Thrombo Time 30.4 Seconds (26.0-36.0); Alanine Aminotransferase 64 Units/L (7-52); Albumin/Globulin Ratio 1.4 (1.1-2.2); Alkaline Phosphatase 123 Units/L (34-104); Aspartate Amino Transferase 113 Units/L (13-39); BUN/Creatinine Ratio 17 (6-26); Bilirubin,Direct 0.1 mg/dL (0.0-0.2); Bilirubin,Indirect 0.3 mg/dL (0.0-1.0); Bilirubin,Total 0.4 mg/dL (0.3-1.0); Blood Urea Nitrogen 16 mg/dL (8-23); Calcium 8.6 mg/dL (8.6-10.3); Carbon Dioxide 25 mEq/L (23-29); Chloride 103 mEq/L (98-107); Globulin 2.9 g/dL (2.4-3.5); Glucose 229 mg/dL (70-105); Osmolality,Calculated 290 (280-300); Potassium 4.5 mEq/L (3.5-5.1); Sodium 136 mEq/L (136-145); Total Protein 6.9 g/dL (6.4-8.9); eGFR For African Americans > 60 (> 60); eGFR For Non-African Americans 57 (> 60)
[2020-05-19 00:18] LABS: Troponin I 0.11 ng/mL (< 0.04)
[2020-05-19] MEDS ORDERED: Isovue-370 500 ML BOTTLE IVP ONE (00:33)
[2020-05-19] MEDS ORDERED: Furosemide 40 MG/4 ML VIAL IVP ONE (00:34)
[2020-05-19] MEDS ORDERED: Aspirin 325 MG TABLET PO ONE (00:43)
[2020-05-19 02:25] LABS: Bilirubin,Urine Negative (Negative); Blood,Urine Negative (Negative); Clarity,Urine Clear (Clear); Color,Urine Colorless (Yellow); Glucose,Urine (UA) Normal (Normal); Ketones,Urine Negative (Negative); Leukocyte Esterase,Urine Negative (Negative); Nitrite,Urine Negative (Negative); Protein,Urine Negative (Neg-Trace); Specific Gravity,Urine 1.013 (1.010-1.025); Urobilinogen,Urine Normal (Normal)
[2020-05-19] MEDS ORDERED: Naloxone 0.4 MG/ML INJ IVP PRN (04:32)
[2020-05-19] MEDS ORDERED: *HR* Promethazine 25 MG/ML VIAL IVP PRN (04:32)
[2020-05-19] MEDS ORDERED: Acetaminophen 325 MG TABLET PO PRN (04:32)
[2020-05-19] MEDS ORDERED: *HR* Heparin 5,000 UNIT/ML VIAL IVP ONE (04:35)
[2020-05-19] MEDS ORDERED: *HR* Heparin 5,000 UNIT/ML VIAL IVP PRN ×2 (04:35)
[2020-05-19] MEDS ORDERED: traZODone 50 MG TABLET PO PRN (04:37)
[2020-05-19] MEDS ORDERED: Heparin 25,000 UNIT/250 ML D5W 25,000 UNIT/250 ML IV.SOLN IVC SCH (04:45)
[2020-05-19 05:17] LABS: Hematocrit 32.4 % (35.3-44.9); Hemoglobin 10.6 g/dL (11.5-15.4); Mean Corpuscular HGB Conc 32.7 g/dL (31.6-35.5); Mean Corpuscular Hemoglobin 29.1 pg (28.0-33.3); Platelet Count 182 K/mcL (140-400); Red Blood Count 3.64 M/mcL (3.82-4.97); White Blood Count 10.4 K/mcL (4.3-11.1)
[2020-05-19 05:25] LABS: Heparin anti-factor XA UFH 0.04 IU/mL (0.30-0.70); Prothrombin Time 11.6 Seconds (9.4-12.1)
[2020-05-19] MEDS: methocarbamoL 500 MG TABLET PO SCH ×3 (08:32→17:54)
[2020-05-19] MEDS: Aspirin 81 MG TAB.CHEW PO SCH (08:57)
[2020-05-19] MEDS ORDERED: Furosemide 40 MG/4 ML VIAL IVP SCH (09:00)
[2020-05-19] MEDS ORDERED: Perflutren Lipid Microsphere 1.3 ML in 0.9 % Sodium Chloride 8.7 ML IVP ONE (12:11)
[2020-05-19] MEDS ORDERED: *HR* Dextrose 50 % in Water (Vial) 50 ML VIAL IVP PRN (12:23)
[2020-05-19] MEDS ORDERED: D5% in Water 1,000 ML IVC PRN (12:23)
[2020-05-19] MEDS ORDERED: Dextrose Gel 15 GM/37.5 ML TUBE PO PRN ×2 (12:23)
[2020-05-19] MEDS ORDERED: 0.9 % Sodium Chloride 1,000 ML ONE (13:52)
[2020-05-19] MEDS ORDERED: Nitroglycerin 1,000 MCG/10 ML VIAL IV ONE (13:53)
[2020-05-19] MEDS ORDERED: *HR* Heparin 10,000 UNIT/10 ML VIAL ONE (13:53)
[2020-05-19] MEDS ORDERED: Heparin 1,000 UNITS/500 mL 500 ML ONE (13:53)
[2020-05-19] MEDS ORDERED: ISOVUE-370 200 ML INFUS..BTL ONE (13:53)
[2020-05-19] MEDS ORDERED: *HR* FentaNYL (PF) 100 MCG/2 ML VIAL ONE (14:12)
[2020-05-19] MEDS ORDERED: *HR* Midazolam HCl 2 MG/2 ML VIAL ONE (14:12)
[2020-05-19] MEDS: Insulin LISPRO 300 UNITS/3 ML VIAL SQ SCH ×5 (14:18→20:29)
[2020-05-20] MEDS: methocarbamoL 500 MG TABLET PO SCH ×2 (00:03→08:50)
[2020-05-20 02:48] LABS: Basophils % 0.3 %; Eosinophils # 0.5 K/mcL (0.0-0.6); Eosinophils % 6.1 %; Hematocrit 33.5 % (35.3-44.9); Hemoglobin 10.6 g/dL (11.5-15.4); Immature Granulocytes % 0.3 % (0-4); Lymphocytes # 1.8 K/mcL (0.6-4.6); Lymphocytes % 20.9 %; Mean Corpuscular HGB Conc 31.6 g/dL (31.6-35.5); Mean Corpuscular Hemoglobin 27.9 pg (28.0-33.3); Mean Corpuscular Volume 88.2 fL (83.0-100.0); Mean Platelet Volume 10.1 fL (9.4-12.4); Monocytes # 0.8 K/mcL (0.0-1.3); Neutrophils # 5.6 K/mcL (1.6-8.9); Platelet Count 185 K/mcL (140-400); Red Cell Distribution Width 13.1 % (11.5-14.5); Segmented Neutrophils % 63.4 %; White Blood Count 8.8 K/mcL (4.3-11.1)
[2020-05-20 02:52] LABS: INR 1.1; Prothrombin Time 12.6 Seconds (9.4-12.1)
[2020-05-20 03:08] LABS: BUN/Creatinine Ratio 27 (6-26); Blood Urea Nitrogen 24 mg/dL (8-23); Carbon Dioxide 27 mEq/L (23-29); Chloride 101 mEq/L (98-107); Glucose 84 mg/dL (70-105); Magnesium 2.1 mg/dL (1.6-2.6); Osmolality,Calculated 285 (280-300); Potassium 3.6 mEq/L (3.5-5.1); Sodium 136 mEq/L (136-145); eGFR For African Americans > 60 (> 60); eGFR For Non-African Americans > 60 (> 60)
[2020-05-20] MEDS: Insulin LISPRO 300 UNITS/3 ML VIAL SQ SCH (08:50)
[2020-05-20] MEDS: Aspirin 81 MG TAB.CHEW PO SCH (08:50)
[2020-05-20] MEDS ORDERED: Furosemide 40 MG/4 ML VIAL IVP ONE (09:00)
[2020-05-20 11:31] VITALS: BP 100/65
[2020-05-20] MEDS ORDERED: Furosemide 20 MG TABLET PO PRN (12:19)
== END 2020-05-20 15:13 | disposition home or self-care (01) ==
LOC: 2NENU 23:24 → EMEROOARM 23:24 → 2NENU 05-19 03:57 → 2ANU 05-19 13:16
PROVIDERS: ADMIT Student in an Organized Health Care Education/Training Program; ATTEND Student in an Organized Health Care Education/Training Program

== ENCOUNTER 2020-06-03 23:13 | Observation (INO) ==
[2020-06-03 23:42] LABS: Basophils % 0.2 %; Eosinophils # 0.6 K/mcL (0.0-0.6); Eosinophils % 7.6 %; Hematocrit 34.1 % (35.3-44.9); Hemoglobin 10.5 g/dL (11.5-15.4); Immature Granulocytes % 0.2 % (0-4); Lymphocytes # 1.3 K/mcL (0.6-4.6); Lymphocytes % 15.7 %; Mean Corpuscular HGB Conc 30.8 g/dL (31.6-35.5); Mean Corpuscular Hemoglobin 27.2 pg (28.0-33.3); Mean Corpuscular Volume 88.3 fL (83.0-100.0); Mean Platelet Volume 10.2 fL (9.4-12.4); Monocytes # 0.6 K/mcL (0.0-1.3); Monocytes % 7.7 %; Neutrophils # 5.7 K/mcL (1.6-8.9); Platelet Count 217 K/mcL (140-400); Red Blood Count 3.86 M/mcL (3.82-4.97); Red Cell Distribution Width 13.1 % (11.5-14.5); Segmented Neutrophils % 68.6 %; White Blood Count 8.3 K/mcL (4.3-11.1)
[2020-06-03 23:50] LABS: VBG HCO3 28 mEq/L (21-27); VBG PCO2 55 mmHg (41-51); VBG PH 7.31 pH Units (7.32-7.42); VBG PO2 112 mmHg (25-50)
[2020-06-04] MEDS ORDERED: Furosemide 20 MG/2 ML VIAL IVP ONE (00:04)
[2020-06-04 00:06] LABS: Bilirubin,Urine Negative (Negative); Blood,Urine Negative (Negative); Clarity,Urine Clear (Clear); Color,Urine Light-Yellow (Yellow); Glucose,Urine (UA) Normal (Normal); Ketones,Urine Negative (Negative); Leukocyte Esterase,Urine Negative (Negative); Nitrite,Urine Negative (Negative); Protein,Urine Negative (Neg-Trace); Specific Gravity,Urine 1.019 (1.010-1.025); Urobilinogen,Urine Normal (Normal)
[2020-06-04 00:27] LABS: Alanine Aminotransferase 21 Units/L (7-52); Albumin 3.8 g/dL (3.5-5.7); Albumin/Globulin Ratio 1.4 (1.1-2.2); Alkaline Phosphatase 81 Units/L (34-104); Aspartate Amino Transferase 35 Units/L (13-39); BUN/Creatinine Ratio 22 (6-26); Bilirubin,Direct 0.1 mg/dL (0.0-0.2); Bilirubin,Indirect 0.2 mg/dL (0.0-1.0); Bilirubin,Total 0.3 mg/dL (0.3-1.0); Blood Urea Nitrogen 21 mg/dL (8-23); Calcium 8.9 mg/dL (8.6-10.3); Carbon Dioxide 24 mEq/L (23-29); Chloride 107 mEq/L (98-107); Globulin 2.7 g/dL (2.4-3.5); Glucose 116 mg/dL (70-105); Osmolality,Calculated 292 (280-300); Potassium 4.1 mEq/L (3.5-5.1); Sodium 139 mEq/L (136-145); Total Protein 6.5 g/dL (6.4-8.9); Troponin I 0.06 ng/mL (< 0.04); eGFR For African Americans > 60 (> 60); eGFR For Non-African Americans 57 (> 60)
[2020-06-04 00:30] LABS: Thyroid Stimulating Hormone 2.049 mcIU/mL (0.340-5.600)
[2020-06-04] MEDS ORDERED: Naloxone 0.4 MG/ML INJ IVP PRN (05:03)
[2020-06-04] MEDS ORDERED: *HR* Heparin 5,000 UNIT/ML VIAL SQ SCH (06:00)
[2020-06-04 08:42] LABS: Folate 8.3 ng/mL (3.0-16.0)
[2020-06-04 08:56] LABS: % Iron Saturation 5 % (15-50); Ferritin 12 ng/mL (10-120); Iron 23 mcg/dL (50-170); Transferrin 346 mg/dL (203-362)
[2020-06-04 11:10] VITALS: BP 120/90
== END 2020-06-04 12:38 | disposition other institution (70) ==
LOC: EMEROOARM 23:13 → 2NNU 23:13 → SUATTDRO 06-04 02:29 → 2NNU 06-04 03:14
PROVIDERS: ADMIT Internal Medicine; ATTEND Pharmacist

== ENCOUNTER 2021-08-01 17:47 | Inpatient (IN) ==
[2021-08-01] MEDS ORDERED: *HR* FentaNYL (PF) 100 MCG/2 ML VIAL IVP STA ×2 (18:00→19:01)
[2021-08-01 18:38] LABS: Basophils % 0.3 %; Eosinophils # 0.6 K/mcL (0.0-0.6); Eosinophils % 7.6 %; Hematocrit 33.7 % (35.3-44.9); Immature Granulocytes % 0.6 % (0-4); Lymphocytes # 1.3 K/mcL (0.6-4.6); Lymphocytes % 16.6 %; Mean Corpuscular HGB Conc 32.6 g/dL (31.6-35.5); Mean Corpuscular Hemoglobin 29.5 pg (28.0-33.3); Mean Corpuscular Volume 90.3 fL (83.0-100.0); Mean Platelet Volume 10.5 fL (9.4-12.4); Monocytes # 0.5 K/mcL (0.0-1.3); Monocytes % 6.4 %; Neutrophils # 5.4 K/mcL (1.6-8.9); Platelet Count 121 K/mcL (140-400); Red Blood Count 3.73 M/mcL (3.82-4.97); Red Cell Distribution Width 13.7 % (11.5-14.5); Segmented Neutrophils % 68.5 %; White Blood Count 7.9 K/mcL (4.3-11.1)
[2021-08-01 18:57] LABS: BUN/Creatinine Ratio 27 (6-26); Blood Urea Nitrogen 24 mg/dL (8-23); Calcium 8.9 mg/dL (8.6-10.3); Carbon Dioxide 30 mEq/L (23-29); Chloride 105 mEq/L (98-107); Glucose 100 mg/dL (70-105); Osmolality,Calculated 294 (280-300); Potassium 3.9 mEq/L (3.5-5.1); Sodium 140 mEq/L (136-145); eGFR For African Americans > 60 (> 60); eGFR For Non-African Americans > 60 (> 60)
[2021-08-01] MEDS ORDERED: *HR* HYDROmorphone (PF) 1 MG/ML SYRINGE IVP ONE (19:01)
[2021-08-01] MEDS ORDERED: tiZANidine 4 MG TABLET PO PRN (20:48)
[2021-08-01] MEDS ORDERED: Naloxone 0.4 MG/ML INJ IVP PRN (21:43)
[2021-08-01] MEDS ORDERED: Acetaminophen 325 MG TABLET PO PRN (21:43)
[2021-08-01] MEDS ORDERED: Ondansetron 4 MG/2 ML VIAL IVP PRN (21:43)
[2021-08-01 21:49] LABS: Influenza A PCR Negative (Negative); Influenza B PCR Negative (Negative); Resp. Syncytial Virus PCR Negative (Negative)
[2021-08-01] MEDS ORDERED: Perflutren Lipid Microsphere 1.3 ML in 0.9 % Sodium Chloride 8.7 ML IVP PRN (21:54)
[2021-08-01 22:17] LABS: SARS-CoV-2 by PCR (In House) Negative (Negative)
[2021-08-01] MEDS ORDERED: *HR* HYDROmorphone 2 MG TABLET PO PRN (22:20)
[2021-08-01] MEDS: carvediloL 6.25 MG TABLET PO SCH (23:03)
[2021-08-01 23:32] LABS: Bacteria,Urine Few per hpf (None-Few); Bilirubin,Urine Negative (Negative); Blood,Urine Negative (Negative); Clarity,Urine Turbid (Clear); Color,Urine Yellow (Yellow); Glucose,Urine (UA) Normal (Normal); Ketones,Urine Trace mg/dL (Negative); Leukocyte Esterase,Urine Trace (Negative); Mucus,Urine Few per lpf (None-Few); Nitrite,Urine Positive (Negative); PH,Urine 6.5 pH Units (5.0-8.0); Protein,Urine Trace mg/dL (Neg-Trace); Specific Gravity,Urine 1.023 (1.010-1.025); Squamous Epithelial Cell,Urine Few per hpf (None-Few); Urobilinogen,Urine Normal (Normal)
[2021-08-02] MEDS ORDERED: Acetaminophen IV 500 MG/50 ML BAG IVPB ONE (00:11)
[2021-08-02] MEDS ORDERED: cefTRIAXone 1,000 MG in 0.9 % Sodium Chloride Mini Bag 100 ML IVPB SCH (02:00)
[2021-08-02] MEDS ORDERED: Levalbuterol Neb 1.25 MG/3 ML IH SCH (04:00)
[2021-08-02 04:14] LABS: Hematocrit 30.7 % (35.3-44.9); Hemoglobin 10.1 g/dL (11.5-15.4); Mean Corpuscular HGB Conc 32.9 g/dL (31.6-35.5); Mean Corpuscular Hemoglobin 29.6 pg (28.0-33.3); Mean Platelet Volume 10.4 fL (9.4-12.4); Platelet Count 108 K/mcL (140-400); Red Blood Count 3.41 M/mcL (3.82-4.97); Red Cell Distribution Width 13.7 % (11.5-14.5)
[2021-08-02 04:30] LABS: INR 1.1; Prothrombin Time 12.3 Seconds (9.4-12.1)
[2021-08-02 04:31] LABS: Activated Partial Thrombo Time 29.5 Seconds (26.0-36.0)
[2021-08-02 04:34] LABS: BUN/Creatinine Ratio 26 (6-26); Blood Urea Nitrogen 21 mg/dL (8-23); Calcium 8.4 mg/dL (8.6-10.3); Carbon Dioxide 26 mEq/L (23-29); Chloride 105 mEq/L (98-107); Chol/HDL Ratio 3.1 (0-4.9); Cholesterol 147 mg/dL (< 200); Glucose 149 mg/dL (70-105); HDL Cholesterol 48 mg/dL (40-59); LDL Cholesterol,Calculated 86 mg/dL (< 100); Magnesium 1.9 mg/dL (1.6-2.6); Osmolality,Calculated 294 (280-300); Potassium 3.7 mEq/L (3.5-5.1); Sodium 139 mEq/L (136-145); Triglycerides 66 mg/dL (< 150); Troponin I 0.06 ng/mL (< 0.04); eGFR For African Americans > 60 (> 60); eGFR For Non-African Americans > 60 (> 60)
[2021-08-02 04:35] LABS: Estimated Average Glucose 108 mg/dl; Hemoglobin A1C 5.4 %
[2021-08-02 04:53] LABS: Folate 16.3 ng/mL (3.0-16.0)
[2021-08-02] MEDS ORDERED: Levalbuterol Neb 1.25 MG/3 ML IH PRN (05:09)
[2021-08-02 06:34] LABS: % Iron Saturation 15 % (15-50); Iron 58 mcg/dL (50-170); Transferrin 283 mg/dL (203-362)
[2021-08-02 06:48] LABS: Ferritin 22 ng/mL (10-120); Thyroid Stimulating Hormone 1.118 mcIU/mL (0.340-5.600)
[2021-08-02] MEDS ORDERED: Aspirin Enteric Coated 81 MG Tablet PO SCH (09:00)
[2021-08-02] MEDS: carvediloL 6.25 MG TABLET PO SCH (10:01)
[2021-08-02] MEDS ORDERED: *HR* HYDROmorphone PF 0.5 MG/0.5 ML SYRINGE IVP PRN (11:29)
[2021-08-02] MEDS ORDERED: *HR* FentaNYL (PF) 100 MCG/2 ML VIAL IVP PRN (11:29)
[2021-08-02] MEDS ORDERED: Ondansetron 4 MG/2 ML VIAL IVP PRN (11:29)
[2021-08-02] MEDS ORDERED: *HR* Rocuronium Bromide 50 MG/5 ML VIAL ONE (15:39)
[2021-08-02] MEDS ORDERED: Lidocaine -MPF 2% 2 ML VIAL ONE (15:39)
[2021-08-02] MEDS ORDERED: Ondansetron 4 MG/2 ML VIAL ONE (15:39)
[2021-08-02] MEDS ORDERED: Lidocaine HCL 4 ML Topical Solution (Laryng-O-Jet Kit Sterile Pak) TP ONE (15:39)
[2021-08-02] MEDS ORDERED: *HR* Midazolam HCl 2 MG/2 ML VIAL ONE (15:39)
[2021-08-02] MEDS ORDERED: *HR* Propofol 200 MG/20 ML VIAL IVP ONE (15:39)
[2021-08-02] MEDS ORDERED: *HR* FentaNYL (PF) 100 MCG/2 ML VIAL ONE (15:39)
[2021-08-02] MEDS ORDERED: *HR* HYDROMORPHONE 2 MG/ML VIAL ONE ×2 (16:42→17:18)
[2021-08-02] MEDS ORDERED: Albumin Human 5% 12.5 GM/250 ML IV.SOLN ONE (18:50)
[2021-08-02] MEDS ORDERED: Albumin Human 5% 12.5 GM/250 ML IV.SOLN IVPB ONE (18:54)
[2021-08-02] MEDS ORDERED: 0.9 % Sodium Chloride 500 ML IVC ONE (20:40)
[2021-08-03] MEDS: Clindamycin 900 MG/50 ML 900 MG/50 ML IV.SOLN IVPB SCH ×2 (00:58→09:32)
[2021-08-03 09:06] LABS: Mean Corpuscular Volume 93.2 fL (83.0-100.0); Monocytes % 9.6 %
[2021-08-03 09:08] LABS: Basophils % 0.2 %; Hematocrit 21.9 % (35.3-44.9); Hemoglobin 7.1 g/dL (11.5-15.4); Immature Granulocytes % 0.4 % (0-4); Immature Platelets 4.7 % (1.1-6.1); Lymphocytes # 0.9 K/mcL (0.6-4.6); Lymphocytes % 11.1 %; Mean Corpuscular HGB Conc 32.4 g/dL (31.6-35.5); Mean Corpuscular Hemoglobin 30.2 pg (28.0-33.3); Mean Platelet Volume 10.8 fL (9.4-12.4); Monocytes # 0.8 K/mcL (0.0-1.3); Neutrophils # 6.3 K/mcL (1.6-8.9); Red Blood Count 2.35 M/mcL (3.82-4.97); Segmented Neutrophils % 78.7 %
[2021-08-03 09:09] LABS: Platelet Count 91 K/mcL (140-400)
[2021-08-03] MEDS ORDERED: 0.9 % Sodium Chloride 1,000 ML IVC ONE (09:15)
[2021-08-03 09:19] LABS: BUN/Creatinine Ratio 32 (6-26); Blood Urea Nitrogen 31 mg/dL (8-23); Carbon Dioxide 27 mEq/L (23-29); Chloride 103 mEq/L (98-107); Glucose 135 mg/dL (70-105); Osmolality,Calculated 291 (280-300); Potassium 4.1 mEq/L (3.5-5.1); Sodium 136 mEq/L (136-145); eGFR For African Americans > 60 (> 60); eGFR For Non-African Americans 55 (> 60)
[2021-08-03] MEDS: Aspirin Enteric Coated 325 MG Tablet PO SCH (09:31)
[2021-08-03] MEDS ORDERED: 0.9 % Sodium Chloride 500 ML ONE ×2 (10:51→17:36)
[2021-08-03] MEDS: *HR* HYDROmorphone 2 MG TABLET PO PRN (12:12)
[2021-08-03] MEDS: cefTRIAXone 1,000 MG in 0.9 % Sodium Chloride Mini Bag 100 ML IVPB SCH (13:55)
[2021-08-03] MEDS: Cyanocobalamin (B-12) 1,000 MCG TABLET PO SCH (13:56)
[2021-08-03] MEDS: carvediloL 6.25 MG TABLET PO SCH ×2 (13:56)
[2021-08-03] MEDS ORDERED: *HR* Metoprolol 5 MG/5 ML VIAL IVP ONE (14:25)
[2021-08-03 14:47] LABS: Hematocrit 23.5 % (35.3-44.9); Hemoglobin 7.6 g/dL (11.5-15.4)
[2021-08-03 22:08] LABS: Hematocrit 25.6 % (35.3-44.9); Hemoglobin 8.5 g/dL (11.5-15.4)
[2021-08-04] MEDS: Aspirin Enteric Coated 325 MG Tablet PO SCH (08:19)
[2021-08-04] MEDS: cefTRIAXone 1,000 MG in 0.9 % Sodium Chloride Mini Bag 100 ML IVPB SCH (08:19)
[2021-08-04] MEDS: carvediloL 6.25 MG TABLET PO SCH ×2 (08:19→15:56)
[2021-08-04] MEDS: Cyanocobalamin (B-12) 1,000 MCG TABLET PO SCH (08:19)
[2021-08-04 09:27] LABS: Basophils % 0.2 %; Immature Granulocytes % 0.6 % (0-4); Nucleated Red Blood Cells 0.2 /100 WBC (0); Red Blood Count 2.83 M/mcL (3.82-4.97); Red Cell Distribution Width 14.9 % (11.5-14.5)
[2021-08-04 09:29] LABS: Eosinophils % 0.2 %; Hematocrit 25.4 % (35.3-44.9); Hemoglobin 8.5 g/dL (11.5-15.4); Lymphocytes # 0.7 K/mcL (0.6-4.6); Mean Corpuscular HGB Conc 33.5 g/dL (31.6-35.5); Mean Corpuscular Volume 89.8 fL (83.0-100.0); Mean Platelet Volume 10.6 fL (9.4-12.4); Monocytes # 0.7 K/mcL (0.0-1.3); Monocytes % 8.1 %; Neutrophils # 7.1 K/mcL (1.6-8.9); Segmented Neutrophils % 82.9 %; White Blood Count 8.6 K/mcL (4.3-11.1)
[2021-08-04 09:30] LABS: Platelet Count 96 K/mcL (140-400)
[2021-08-04] MEDS: *HR* HYDROmorphone 2 MG TABLET PO PRN ×2 (10:04→17:59)
[2021-08-04 10:28] LABS: BUN/Creatinine Ratio 30 (6-26); Blood Urea Nitrogen 26 mg/dL (8-23); Calcium 8.3 mg/dL (8.6-10.3); Carbon Dioxide 24 mEq/L (23-29); Chloride 103 mEq/L (98-107); Glucose 106 mg/dL (70-105); Osmolality,Calculated 285 (280-300); Potassium 3.7 mEq/L (3.5-5.1); Sodium 135 mEq/L (136-145); eGFR For African Americans > 60 (> 60); eGFR For Non-African Americans > 60 (> 60)
[2021-08-05 08:07] LABS: Basophils % 0.2 %; Hemoglobin 7.3 g/dL (11.5-15.4)
[2021-08-05 08:08] LABS: Eosinophils # 0.1 K/mcL (0.0-0.6); Eosinophils % 1.7 %; Hematocrit 22.6 % (35.3-44.9); Immature Granulocytes % 0.8 % (0-4); Lymphocytes # 0.9 K/mcL (0.6-4.6); Lymphocytes % 13.9 %; Mean Corpuscular HGB Conc 32.3 g/dL (31.6-35.5); Mean Corpuscular Hemoglobin 30.4 pg (28.0-33.3); Mean Corpuscular Volume 94.2 fL (83.0-100.0); Mean Platelet Volume 10.7 fL (9.4-12.4); Monocytes # 0.5 K/mcL (0.0-1.3); Monocytes % 7.7 %; Neutrophils # 4.8 K/mcL (1.6-8.9); Red Cell Distribution Width 14.7 % (11.5-14.5); Segmented Neutrophils % 75.7 %; White Blood Count 6.4 K/mcL (4.3-11.1)
[2021-08-05 08:13] LABS: Platelet Count 82 K/mcL (140-400)
[2021-08-05 09:04] LABS: BUN/Creatinine Ratio 32 (6-26); Blood Urea Nitrogen 24 mg/dL (8-23); Calcium 7.9 mg/dL (8.6-10.3); Carbon Dioxide 23 mEq/L (23-29); Chloride 105 mEq/L (98-107); Glucose 79 mg/dL (70-105); Osmolality,Calculated 283 (280-300); Potassium 3.8 mEq/L (3.5-5.1); Sodium 135 mEq/L (136-145); eGFR For African Americans > 60 (> 60); eGFR For Non-African Americans > 60 (> 60)
[2021-08-05] MEDS: carvediloL 6.25 MG TABLET PO SCH ×2 (09:31→16:48)
[2021-08-05] MEDS: *HR* HYDROmorphone 2 MG TABLET PO PRN ×2 (09:31)
[2021-08-05] MEDS: cefTRIAXone 1,000 MG in 0.9 % Sodium Chloride Mini Bag 100 ML IVPB SCH (09:32)
[2021-08-05] MEDS: Cyanocobalamin (B-12) 1,000 MCG TABLET PO SCH (09:32)
[2021-08-05] MEDS: Aspirin Enteric Coated 325 MG Tablet PO SCH (09:32)
[2021-08-05] MEDS ORDERED: 0.9 % Sodium Chloride 250 ML ONE (12:08)
[2021-08-05 16:08] LABS: Hematocrit 24.5 % (35.3-44.9); Hemoglobin 8.1 g/dL (11.5-15.4)
[2021-08-05] MEDS: Levalbuterol 1 PUFF INHALER IH SCH ×2 (16:54→22:23)
[2021-08-06] MEDS: *HR* HYDROmorphone 2 MG TABLET PO PRN ×2 (04:01→18:02)
[2021-08-06] MEDS: Levalbuterol 1 PUFF INHALER IH SCH (04:29)
[2021-08-06 05:19] LABS: Basophils % 0.3 %; Eosinophils # 0.2 K/mcL (0.0-0.6); Eosinophils % 3.5 %; Hematocrit 26.1 % (35.3-44.9); Hemoglobin 8.6 g/dL (11.5-15.4); Immature Granulocytes % 0.5 % (0-4); Lymphocytes % 14.9 %; Mean Corpuscular Hemoglobin 29.7 pg (28.0-33.3); Mean Platelet Volume 10.3 fL (9.4-12.4); Monocytes # 0.6 K/mcL (0.0-1.3); Monocytes % 9.7 %; Neutrophils # 4.6 K/mcL (1.6-8.9); Nucleated Red Blood Cells 0.5 /100 WBC (0); Platelet Count 114 K/mcL (140-400); Segmented Neutrophils % 71.1 %; White Blood Count 6.5 K/mcL (4.3-11.1)
[2021-08-06 05:39] LABS: BUN/Creatinine Ratio 25 (6-26); Blood Urea Nitrogen 20 mg/dL (8-23); Calcium 8.4 mg/dL (8.6-10.3); Carbon Dioxide 24 mEq/L (23-29); Chloride 105 mEq/L (98-107); Glucose 86 mg/dL (70-105); Osmolality,Calculated 286 (280-300); Potassium 4.1 mEq/L (3.5-5.1); Sodium 137 mEq/L (136-145); eGFR For African Americans > 60 (> 60); eGFR For Non-African Americans > 60 (> 60)
[2021-08-06] MEDS: carvediloL 6.25 MG TABLET PO SCH ×2 (08:03→18:02)
[2021-08-06] MEDS: cefTRIAXone 1,000 MG in 0.9 % Sodium Chloride Mini Bag 100 ML IVPB SCH (08:03)
[2021-08-06] MEDS: Cyanocobalamin (B-12) 1,000 MCG TABLET PO SCH (08:03)
[2021-08-06] MEDS: Aspirin Enteric Coated 325 MG Tablet PO SCH (08:03)
[2021-08-06 12:37] VITALS: BP 114/68; PULSE 78; TEMP 98.5; O2SAT 98
[2021-08-06 13:09] LABS: Adenovirus Not Detected (Not Detect); Bordetella Pertussis Not Detected (Not Detect); Chlamydophila pneumoniae Not Detected (Not Detect); Coronavirus 229E Not Detected (Not Detect); Coronavirus HKU1 Not Detected (Not Detect); Coronavirus NL63 Not Detected (Not Detect); Coronavirus OC43 Not Detected (Not Detect); Human Metapneumovirus Not Detected (Not Detect); Human Rhinovirus/Enterovirus Not Detected (Not Detect); Influenza A Subtype 2009 H1 Not Detected (Not Detect); Influenza B Not Detected (Not Detect); Mycoplasma pneumoniae Not Detected (Not Detect); Parainfluenza Virus 1 Not Detected (Not Detect); Parainfluenza Virus 2 Not Detected (Not Detect); Parainfluenza Virus 3 Not Detected (Not Detect); Parainfluenza Virus 4 Not Detected (Not Detect); Respiratory Syncytial Virus Not Detected (Not Detect); SARS-CoV-2 Not Detected (Not Detect)
== END 2021-08-06 18:05 | disposition other institution (70) | DRG 481 ==
LOC: 4WAOSI 17:47 → EMEROOARM 17:47 → 4WAOSI 19:50 → SUATTDRO 22:36 → 4WAOSI 08-03 12:51
PROVIDERS: ADMIT Internal Medicine; ATTEND Internal Medicine

== ENCOUNTER 2022-02-06 10:58 | Inpatient (IN) ==
[2022-02-06] MEDS ORDERED: Morphine Sulfate 2 MG/ML SYRINGE IVP ONE (11:49)
[2022-02-06] MEDS ORDERED: 0.9 % Sodium Chloride 1,000 ML IVC ONE (11:49)
[2022-02-06] MEDS ORDERED: Ondansetron 4 MG/2 ML VIAL IVP ONE (11:49)
[2022-02-06 12:23] LABS: Bacteria,Urine Few per hpf (None-Few); Bilirubin,Urine Negative (Negative); Blood,Urine Small (Negative); Clarity,Urine Clear (Clear); Color,Urine Yellow (Yellow); Glucose,Urine (UA) Normal (Normal); Ketones,Urine Negative (Negative); Leukocyte Esterase,Urine Moderate (Negative); Mucus,Urine Few per lpf (None-Few); Nitrite,Urine Negative (Negative); PH,Urine 6.5 pH Units (5.0-8.0); Protein,Urine Trace mg/dL (Neg-Trace); RBC,Urine 15-30 per hpf (0-3); Specific Gravity,Urine 1.021 (1.010-1.025); Squamous Epithelial Cell,Urine Few per hpf (None-Few); WBC,Urine 50-100 per hpf (0-3)
[2022-02-06 12:55] LABS: Basophils % 0.3 %; Eosinophils # 0.2 K/mcL (0.0-0.6); Eosinophils % 2.4 %; Hemoglobin 13.5 g/dL (11.5-15.4); Immature Granulocytes % 0.3 % (0-4); Lymphocytes # 0.9 K/mcL (0.6-4.6); Lymphocytes % 9.8 %; Mean Corpuscular HGB Conc 32.1 g/dL (31.6-35.5); Mean Corpuscular Hemoglobin 31.5 pg (28.0-33.3); Mean Corpuscular Volume 97.9 fL (83.0-100.0); Mean Platelet Volume 10.3 fL (9.4-12.4); Monocytes # 0.4 K/mcL (0.0-1.3); Monocytes % 4.4 %; Neutrophils # 7.6 K/mcL (1.6-8.9); Platelet Count 120 K/mcL (140-400); Red Blood Count 4.29 M/mcL (3.82-4.97); Red Cell Distribution Width 13.3 % (11.5-14.5); Segmented Neutrophils % 82.8 %; White Blood Count 9.2 K/mcL (4.3-11.1)
[2022-02-06] MEDS ORDERED: Furosemide 40 MG/4 ML VIAL IVP ONE (14:10)
[2022-02-06] MEDS ORDERED: cefTRIAXone 1,000 MG in Water for inj. (sterile) 10 ML IVP ONE ×2 (14:37→22:42)
[2022-02-06] MEDS ORDERED: *HR* Promethazine 25 MG/ML VIAL IM PRN (15:16)
[2022-02-06] MEDS ORDERED: Naloxone 0.4 MG/ML INJ IVP PRN (15:16)
[2022-02-06] MEDS ORDERED: Acetaminophen 325 MG TABLET PO PRN (15:16)
[2022-02-06] MEDS ORDERED: MOM Conc 10 ML UD.LIQ PO PRN (15:16)
[2022-02-06] MEDS ORDERED: Melatonin 3 MG TABLET PO PRN (15:16)
[2022-02-06 16:51] LABS: Alanine Aminotransferase 41 Units/L (7-52); Albumin 2.6 g/dL (3.5-5.7); Albumin/Globulin Ratio 1.4 (1.1-2.2); Alkaline Phosphatase 68 Units/L (34-104); Aspartate Amino Transferase 81 Units/L (13-39); BUN/Creatinine Ratio 19 (6-26); Bilirubin,Direct 0.1 mg/dL (0.0-0.2); Bilirubin,Indirect 0.4 mg/dL (0.0-1.0); Bilirubin,Total 0.5 mg/dL (0.3-1.0); Blood Urea Nitrogen 13 mg/dL (8-23); Calcium 6.5 mg/dL (8.6-10.3); Carbon Dioxide 20 mEq/L (23-29); Chloride 113 mEq/L (98-107); Globulin 1.8 g/dL (2.4-3.5); Glucose 91 mg/dL (70-105); Lipase 11 Units/L (11-82); Osmolality,Calculated 294 (280-300); Potassium 3.1 mEq/L (3.5-5.1); Sodium 142 mEq/L (136-145); Total Protein 4.4 g/dL (6.4-8.9); Troponin I 0.95 ng/mL (< 0.04); eGFR For African Americans > 60 (> 60); eGFR For Non-African Americans > 60 (> 60)
[2022-02-06] MEDS ORDERED: 0.9 % Sodium Chloride 250 ML IVC ONE (16:57)
[2022-02-06] MEDS ORDERED: Heparin 25,000UNIT/250ML 1/2NS 25,000 UNIT/250 ML IV.SOLN IVC SCH (17:00)
[2022-02-06] MEDS ORDERED: *HR* Heparin 5,000 UNIT/ML VIAL IVP PRN ×2 (17:00)
[2022-02-06] MEDS ORDERED: Aspirin 81 MG TAB.CHEW PO ONE (17:00)
[2022-02-06] MEDS ORDERED: carvediloL 6.25 MG TABLET PO SCH (17:00)
[2022-02-06] MEDS ORDERED: *HR* Heparin 5,000 UNIT/ML VIAL IVP ONE (17:00)
[2022-02-06] MEDS ORDERED: Perflutren Lipid Microsphere 1.3 ML in 0.9 % Sodium Chloride 8.7 ML IVP PRN (17:17)
[2022-02-06] MEDS ORDERED: 0.9 % Sodium Chloride 500 ML IVC ONE (17:38)
[2022-02-06] MEDS ORDERED: Ketorolac 30 MG/ML VIAL IVP SCH (18:00)
[2022-02-06] MEDS: Albumin 25% 25gram/100mL 25 GM/100 ML IV.SOLN IVC SCH ×2 (19:01→19:51)
[2022-02-06 19:25] LABS: INR 1.2; Prothrombin Time 13.1 Seconds (9.4-12.1)
[2022-02-06 19:42] LABS: Heparin anti-factor XA UFH < 0.04 IU/mL (0.30-0.70)
[2022-02-06 19:45] LABS: Magnesium 1.3 mg/dL (1.6-2.6); Phosphorous 2.7 mg/dL (2.7-4.5); Troponin I 2.91 ng/mL (< 0.04)
[2022-02-06] MEDS: Ipratropium/Albuterol Neb 3 ML IH SCH ×2 (19:55→23:44)
[2022-02-06] MEDS ORDERED: 0.9 % Sodium Chloride 1,000 ML IVC SCH (22:45)
[2022-02-06] MEDS: Calcium Gluconate 1gm/50mL 1 GM/50 ML BAG IVPB SCH (23:08)
[2022-02-07] MEDS: Calcium Gluconate 1gm/50mL 1 GM/50 ML BAG IVPB SCH (00:08)
[2022-02-07] MEDS ORDERED: D5% in Water 1,000 ML IVC PRN (00:35)
[2022-02-07] MEDS ORDERED: Dextrose 4 GM Chewable Tablets PO PRN ×2 (00:35)
[2022-02-07] MEDS ORDERED: *HR* Dextrose 50 % in Water (Syg) 50 ML SYRINGE IVP PRN (00:35)
[2022-02-07 03:03] LABS: Magnesium 2.5 mg/dL (1.6-2.6); Phosphorous 3.9 mg/dL (2.7-4.5)
[2022-02-07 03:05] LABS: Calcium 8.7 mg/dL (8.6-10.3); Potassium 3.9 mEq/L (3.5-5.1)
[2022-02-07] MEDS: Ipratropium/Albuterol Neb 3 ML IH SCH ×6 (03:33→23:00)
[2022-02-07 04:19] LABS: Adenovirus Not Detected (Not Detect); Bordetella Pertussis Not Detected (Not Detect); Chlamydophila pneumoniae Not Detected (Not Detect); Coronavirus 229E Not Detected (Not Detect); Coronavirus HKU1 Not Detected (Not Detect); Coronavirus NL63 Not Detected (Not Detect); Coronavirus OC43 Not Detected (Not Detect); Human Metapneumovirus Not Detected (Not Detect); Human Rhinovirus/Enterovirus Not Detected (Not Detect); Influenza A Subtype 2009 H1 Not Detected (Not Detect); Influenza B Not Detected (Not Detect); Mycoplasma pneumoniae Not Detected (Not Detect); Parainfluenza Virus 1 Not Detected (Not Detect); Parainfluenza Virus 2 Not Detected (Not Detect); Parainfluenza Virus 3 Not Detected (Not Detect); Parainfluenza Virus 4 Not Detected (Not Detect); Respiratory Syncytial Virus Not Detected (Not Detect); SARS-CoV-2 Not Detected (Not Detect)
[2022-02-07] MEDS: Norepinephrine 4 MG/254 ML IV.SOLN IVC SCH (06:50)
[2022-02-07] MEDS: Pantoprazole 40 MG VIAL IVP SCH (07:53)
[2022-02-07] MEDS: cefTRIAXone 2,000 MG in 0.9 % Sodium Chloride 20 ML IVP SCH (07:54)
[2022-02-07] MEDS: Aspirin 81 MG TAB.CHEW PO SCH (07:54)
[2022-02-07] MEDS: Budesonide/Formoterol 160/4.5 1 PUFF INH IH SCH ×2 (08:33→20:40)
[2022-02-07 08:37] LABS: Hematocrit 34.3 % (35.3-44.9); Mean Corpuscular Volume 94.2 fL (83.0-100.0); Red Blood Count 3.64 M/mcL (3.82-4.97); Red Cell Distribution Width 13.6 % (11.5-14.5)
[2022-02-07 08:39] LABS: Basophils % 0.2 %; Eosinophils # 0.1 K/mcL (0.0-0.6); Eosinophils % 0.4 %; Hemoglobin 11.7 g/dL (11.5-15.4); Immature Granulocytes % 6.2 % (0-4); Immature Platelets 5.9 % (1.1-6.1); Lymphocytes # 0.5 K/mcL (0.6-4.6); Mean Corpuscular HGB Conc 34.1 g/dL (31.6-35.5); Mean Corpuscular Hemoglobin 32.1 pg (28.0-33.3); Mean Platelet Volume 10.8 fL (9.4-12.4); White Blood Count 24.9 K/mcL (4.3-11.1)
[2022-02-07 08:57] LABS: Albumin 3.7 g/dL (3.5-5.7); Albumin/Globulin Ratio 1.9 (1.1-2.2); Bilirubin,Total 0.6 mg/dL (0.3-1.0); Calcium 8.6 mg/dL (8.6-10.3); Potassium 4.3 mEq/L (3.5-5.1); Total Protein 5.7 g/dL (6.4-8.9)
[2022-02-07] MEDS ORDERED: cefTRIAXone 1,000 MG in 0.9 % Sodium Chloride 10 ML IVP SCH (09:00)
[2022-02-07 09:31] LABS: Basophils # 0.1 K/mcL (0.0-0.2); Neutrophils # 24.8 K/mcL (1.6-8.9); Platelet Count 85 K/mcL (140-400); Segmented Neutrophils % 87.5 %
[2022-02-07 09:32] LABS: Lymphocytes % 1.9 %
[2022-02-07 09:33] LABS: Monocytes % 3.8 %
[2022-02-07 10:26] LABS: Platelet Estimate Normal (Normal)
[2022-02-07] MEDS ORDERED: 0.9 % Sodium Chloride 500 ML IVC ONE (10:41)
[2022-02-07] MEDS: Albumin 25% 25gram/100mL 25 GM/100 ML IV.SOLN IVC SCH ×2 (11:50→13:57)
[2022-02-07] MEDS: *HR* Heparin 5,000 UNIT/ML VIAL SQ SCH (17:44)
[2022-02-08] MEDS: Ipratropium/Albuterol Neb 3 ML IH SCH ×5 (03:54→20:34)
[2022-02-08 04:18] LABS: Hemoglobin 10.6 g/dL (11.5-15.4); Red Cell Distribution Width 13.6 % (11.5-14.5)
[2022-02-08 04:19] LABS: Hematocrit 31.5 % (35.3-44.9); Immature Platelets 6.4 % (1.1-6.1); Mean Corpuscular HGB Conc 33.7 g/dL (31.6-35.5); Mean Corpuscular Volume 95.2 fL (83.0-100.0); Mean Platelet Volume 11.2 fL (9.4-12.4); Red Blood Count 3.31 M/mcL (3.82-4.97)
[2022-02-08 04:23] LABS: Platelet Count 63 K/mcL (140-400)
[2022-02-08 04:58] LABS: Calcium 8.3 mg/dL (8.6-10.3); Potassium 4.4 mEq/L (3.5-5.1)
[2022-02-08 05:00] LABS: Lymphocytes # 1.3 K/mcL (0.6-4.6); Monocytes # 0.3 K/mcL (0.0-1.3); Neutrophils # 14.4 K/mcL (1.6-8.9); Platelet Estimate Decreased (Normal)
[2022-02-08] MEDS: Norepinephrine 4 MG/254 ML IV.SOLN IVC SCH (05:00)
[2022-02-08] MEDS: *HR* Heparin 5,000 UNIT/ML VIAL SQ SCH ×2 (05:01→17:40)
[2022-02-08] MEDS ORDERED: *HR* FentaNYL (PF) 100 MCG/2 ML VIAL ONE (06:56)
[2022-02-08] MEDS ORDERED: *HR* Propofol 200 MG/20 ML VIAL IVP ONE (06:56)
[2022-02-08] MEDS ORDERED: Ondansetron 4 MG/2 ML VIAL ONE (06:59)
[2022-02-08] MEDS ORDERED: Lidocaine -MPF 2% 5 ML VIAL ONE (06:59)
[2022-02-08] MEDS ORDERED: *HR* Vasopressin 20 UNIT/ML VIAL ONE (07:11)
[2022-02-08] MEDS: Budesonide/Formoterol 160/4.5 1 PUFF INH IH SCH ×2 (07:52→20:34)
[2022-02-08] MEDS ORDERED: Acetaminophen 325 MG TABLET PO PRN (10:03)
[2022-02-08] MEDS ORDERED: Norepinephrine 4 MG/254 ML IV.SOLN IVC SCH (10:03)
[2022-02-08] MEDS ORDERED: D5% in Water 1,000 ML IVC PRN (10:03)
[2022-02-08] MEDS ORDERED: Perflutren Lipid Microsphere 1.3 ML in 0.9 % Sodium Chloride 8.7 ML IVP PRN (10:03)
[2022-02-08] MEDS ORDERED: *HR* Promethazine 25 MG/ML VIAL IM PRN (10:03)
[2022-02-08] MEDS ORDERED: Dextrose 4 GM Chewable Tablets PO PRN ×2 (10:03)
[2022-02-08] MEDS ORDERED: Melatonin 3 MG TABLET PO PRN (10:03)
[2022-02-08] MEDS ORDERED: Naloxone 0.4 MG/ML INJ IVP PRN (10:03)
[2022-02-08] MEDS ORDERED: *HR* Dextrose 50 % in Water (Syg) 50 ML SYRINGE IVP PRN (10:03)
[2022-02-08] MEDS: cefTRIAXone 2,000 MG in 0.9 % Sodium Chloride 20 ML IVP SCH (19:50)
[2022-02-08] MEDS: Pantoprazole 40 MG VIAL IVP SCH (19:50)
[2022-02-08] MEDS: Aspirin 81 MG TAB.CHEW PO SCH (19:50)
[2022-02-09] MEDS: Ipratropium/Albuterol Neb 3 ML IH SCH ×4 (00:27→11:32)
[2022-02-09 01:31] LABS: Mean Corpuscular Volume 93.9 fL (83.0-100.0)
[2022-02-09 01:33] LABS: Hematocrit 29.3 % (35.3-44.9); Immature Platelets 6.7 % (1.1-6.1); Mean Corpuscular HGB Conc 34.1 g/dL (31.6-35.5); Mean Corpuscular Hemoglobin 32.1 pg (28.0-33.3); Mean Platelet Volume 11.5 fL (9.4-12.4); Red Blood Count 3.12 M/mcL (3.82-4.97); Red Cell Distribution Width 13.2 % (11.5-14.5); White Blood Count 14.2 K/mcL (4.3-11.1)
[2022-02-09 01:40] LABS: Platelet Count 77 K/mcL (140-400)
[2022-02-09 01:49] LABS: BUN/Creatinine Ratio 30 (6-26); Blood Urea Nitrogen 24 mg/dL (8-23); Calcium 8.2 mg/dL (8.6-10.3); Carbon Dioxide 24 mEq/L (23-29); Chloride 107 mEq/L (98-107); Glucose 136 mg/dL (70-105); Osmolality,Calculated 288 (280-300); Potassium 4.1 mEq/L (3.5-5.1); Sodium 136 mEq/L (136-145); eGFR For African Americans > 60 (> 60); eGFR For Non-African Americans > 60 (> 60)
[2022-02-09 02:14] LABS: Monocytes # 0.6 K/mcL (0.0-1.3); Neutrophils # 13.6 K/mcL (1.6-8.9); Platelet Estimate Decreased (Normal)
[2022-02-09 04:42] VITALS: O2SAT 100
[2022-02-09] MEDS: *HR* Heparin 5,000 UNIT/ML VIAL SQ SCH (05:49)
[2022-02-09] MEDS: Budesonide/Formoterol 160/4.5 1 PUFF INH IH SCH (07:44)
[2022-02-09 08:16] VITALS: BP 113/57; PULSE 70; TEMP 98.2
[2022-02-09] MEDS ORDERED: Aspirin 81 MG TAB.CHEW PO SCH (09:00)
[2022-02-09] MEDS ORDERED: cefTRIAXone 2,000 MG in 0.9 % Sodium Chloride 20 ML IVP SCH (09:00)
[2022-02-09] MEDS ORDERED: Pantoprazole 40 MG VIAL IVP SCH (09:00)
== END 2022-02-09 11:45 | disposition home or self-care (01) | DRG 853 ==
LOC: 2NNU 10:58 → EMEROOARM 10:58 → SUATTDRO 17:17 → 2NNU 18:45
PROVIDERS: ADMIT Internal Medicine; ATTEND Family Medicine